=== PATIENT | male | born 1955 | race Caucasian/White ===

== ENCOUNTER 2021-05-02 18:44 | Emergency (ER) | payer MEDICARE, OTHER ==
[~2021-05-02] VITALS: Ht 185.4 cm; Wt 93.4 kg
--- NOTE | 2021-05-02 18:54 | NUR ---
CALLED TO TRIAGE NO ANSWER.
--- NOTE | 2021-05-02 19:11 | NUR ---
called for triage. no answer
--- NOTE | 2021-05-02 20:30 | NUR ---
BIBS FOR C/O GENERALIZED BODY PAIN X 1 DAY. ALERT AND ORIENTED X4 BREATHING EVEN AND UNLABORED. PLACED ON MONITOR AND ALL V/S STABLE.
[2021-05-02] MEDS ORDERED: IV NS 0.9% 1,000 ML BAG IV ONE (21:00)
--- NOTE | 2021-05-02 21:15 | NUR ---
SENIOR CHEMIST AT 'S [facility]. LAC #18G S/L; PATENT AND INTACT.
--- NOTE | 2021-05-02 21:29 | NUR ---
MAKING DEPARTMENT PREPARER AT PT'S BEDSIDE
[2021-05-02 21:31] LABS: BASOPHILS % (AUTO) 0.4 % (0.0-2.0); EOSINOPHILS % (AUTO) 0.3 % (0.0-6.0); HEMATOCRIT 43 % (39-51); HEMOGLOBIN 14.7 g/dL (13.5-17.5); LYMPHOCYTES # (AUTO) 1.3 K/uL (0.8-4.8); LYMPHOCYTES % (AUTO) 21.8 % (20.0-44.0); MEAN CORPUSCULAR HGB CONC 35 g/dl (31.0-36.0); MEAN CORPUSCULAR VOLUME 89 fL (80-96); MONOCYTES # (AUTO) 0.6 K/uL (0.1-1.30); MONOCYTES % (AUTO) 9.6 % (2.0-12.0); NEUTROPHILS % (AUTO) 67.9 % (43.0-81.0); PLATELET COUNT (AUTO) 144 K/uL (150-450); RED BLOOD CELL COUNT(AUTO) 4.83 MIL/uL (4.5-6.0); WHITE BLOOD COUNT (AUTO) 5.9 K/uL (4.3-11.0)
--- NOTE | 2021-05-02 21:48 | NUR ---
POC ACCUCHECK 153
[2021-05-02 21:53] LABS: CALCIUM, SERUM 8.9 mg/dL (8.5-10.1); CARBON DIOXIDE 23 mmol/L (21-32); CHLORIDE 104 mmol/L (98-107); GLUCOSE 172 mg/dL (74-106); POTASSIUM 4.2 mmol/L (3.5-5.1); SODIUM SERUM 139 mmol/L (136-145); UREA NITROGEN, BLOOD 25 mg/dL (7-18)
[2021-05-02] MEDS ORDERED: MORPHINE SULFATE INJ 2 MG/ML DISP.SYRIN ONE (21:53)
[2021-05-02 21:59] LABS: ALANINE AMINOTRANSFERASE 20 U/L (12-78); ALBUMIN 3.2 g/dL (3.4-5.0); ALKALINE PHOSPHATASE 58 U/L (46-116); ASPARTATE AMINOTRANSFERASE 19 U/L (15-37); BILIRUBIN,DIRECT 0.2 mg/dL (0.0-0.2); BILIRUBIN,TOTAL 0.6 mg/dL (0.2-1.0); TOTAL PROTEIN, SERUM 7.1 g/dL (6.4-8.2)
[2021-05-02] MEDS ORDERED: MORPHINE SULFATE INJ 2 MG/ML DISP.SYRIN IV ONE (22:00)
--- NOTE | 2021-05-02 22:04 | NUR ---
PT STILL UNALBE TO GIVE URINE SAMPLE AT THIS TIME
--- NOTE | 2021-05-02 23:10 | NUR ---
URINE COLLECTED AND SENT TO LAB
[2021-05-02 23:31] LABS: BILIRUBIN,URINE NEGATIVE (NEGATIVE); COLOR,URINE DARK YELLOW (YELLOW); LEUKOCYTE ESTERASE ,URINE NEGATIVE (NEGATIVE); NITRITE, URINE NEGATIVE (NEGATIVE); PH,URINE 5.5 (5.0-8.0); PROTEIN,URINE >=300 mg/dl (NEGATIVE); UGLUCOSE NEGATIVE (NEGATIVE); UROBILINOGEN,URINE 0.2 EU/dL (0.2)
--- NOTE | 2021-05-03 00:01 | NUR ---
CALLED THE CONTACT NUMBER IN THE CHART PER PT'S REQUEST FOR LEGAL ACTIVITY ADJUDICATOR. ON HIS WAY
[2021-05-03 00:28] VITALS: BP 127/86
--- NOTE | 2021-05-03 00:28 | NUR ---
Patient discharged to independant living in stable condition. Written and verbal after care instructions given. Patient verbalizes understanding of instruction. IV removed. Catheter intact and site benign. Pressure and 4x4 applied to site. No bleeding noted. Independant account financial manager Rohit picked up patient.
--- NOTE | 2021-05-03 00:28 | NUR ---
Patient discharged to home in stable condition. Written and verbal after care instructions given. Patient verbalizes understanding of instruction.
[2021-05-03 07:28] LABS: BACTERIA,URINE Rare /HPF (None Seen); SQUAMOUS EPITHELIAL CELL,UR Rare /HPF (None Seen); WBC,URINE 0-2 /HPF (0-3)
== END 2021-05-03 00:29 | disposition home or self-care (01) ==
LOC: ER 18:47
DX: G89.29 Other chronic pain (principal); R53.1 Weakness; R53.83 Other fatigue; I10 Essential (primary) hypertension; E11.9 Type 2 diabetes mellitus without complications; G47.00 Insomnia, unspecified; F17.200 Nicotine dependence, unspecified, uncomplicated; Z59.00 Homelessness unspecified; Z98.890 Other specified postprocedural states
CPT/HCPCS: 36415; 71045; 80048; 80076; 81001; 83605; 84484; 85025; 87040 ×2; 93005 ×2; 96361; 96374; 99285; J2270; J7030

== ENCOUNTER 2021-12-01 11:05 | Inpatient (IN) | payer MEDICARE, OTHER ==
[~2021-12-01] VITALS: Ht 180.3 cm; Wt 89.4 kg
--- NOTE | 2021-12-01 11:15 | NUR ---
BIB FAMILY FOR WEAKNESS X2 DAY PT HAD A GLF YESTERDAY, HYPOXIC, AND FEBRILE. PT SATTING IN 80% ON 6L NC. PT STATED HE DOES NOT USE OXYGEN AT HOME AND DID NOT NEED ASSISTANCE 2 DAYS PRIOR. STATED THE ONSET WAS SUDDEN. PT IS A&OX4. DR FLORES AT BEDSIDE. AWAITING MD ORDERS.
--- NOTE | 2021-12-01 11:49 | NUR ---
BIPAP SETTINGS HI RATE; 45 LO RATE: 10 HI VT: 1400 LO VT: 200 HIP: 20 LIP: 5 LO VE: 3.0 LIP T: 25
--- NOTE | 2021-12-01 11:55 | NUR ---
RT NOTE RT CALLED TO BEDSIDE TO PLACE PATIENT ON BIPAP WITH SETTINGS PER MD ORDER. BIPAP SETTINGS: 15/, BUR 18, 100%. ABG TO FOLLOW ONE HOUR POST INITIAL BIPAP SET UP. RN NOTIFIED AND AWARE. SpO2 93%. NO SOB NOTED AT THIS TIME. Addendum: 12/01/21 at 1532 by IRIS LU RT Amended: Links added.
[2021-12-01] MEDS ORDERED: VANCOMYCIN 1 GM in IV D5W 250 ML IV ONE (12:00)
[2021-12-01] MEDS ORDERED: CEFEPIME 1 GM in IV D5W 50 ML IV ONE (12:00)
--- NOTE | 2021-12-01 12:09 | NUR ---
COVID TEST COLELCTED AND SENT
[2021-12-01 12:19] LABS: BASOPHILS % (AUTO) 0.1 % (0.0-2.0); HEMATOCRIT 44 % (39-51); LYMPHOCYTES # (AUTO) 1.2 K/uL (0.8-4.8); LYMPHOCYTES % (AUTO) 5.7 % (20.0-44.0); MEAN CORPUSCULAR HGB CONC 34 g/dl (31.0-36.0); MEAN CORPUSCULAR VOLUME 89 fL (80-96); MONOCYTES # (AUTO) 0.9 K/uL (0.1-1.30); NEUTROPHILS # (AUTO) 19.6 K/uL (1.8-8.9); NEUTROPHILS % (AUTO) 90.2 % (43.0-81.0); PLATELET COUNT (AUTO) 202 K/uL (150-450); RED BLOOD CELL COUNT(AUTO) 4.94 MIL/uL (4.5-6.0); WHITE BLOOD COUNT (AUTO) 21.7 K/uL (4.3-11.0)
--- NOTE | 2021-12-01 12:52 | NUR ---
LAB CALLED ELI FLORES AWARE.
[2021-12-01 12:53] LABS: CALCIUM, SERUM 8.5 mg/dL (8.5-10.1); CARBON DIOXIDE 18 mmol/L (21-32); CHLORIDE 98 mmol/L (98-107); CREATININE 1.1 mg/dL (0.6-1.3); GLUCOSE 240 mg/dL (74-106); POTASSIUM 3.6 mmol/L (3.5-5.1); SODIUM SERUM 131 mmol/L (136-145); UREA NITROGEN, BLOOD 25 mg/dL (7-18)
--- NOTE | 2021-12-01 13:07 | NUR ---
MOVE SHEET SUBMITTED.
[2021-12-01 13:12] LABS: ALANINE AMINOTRANSFERASE 36 U/L (12-78); ALBUMIN 3.1 g/dL (3.4-5.0); ALKALINE PHOSPHATASE 71 U/L (46-116); ASPARTATE AMINOTRANSFERASE 35 U/L (15-37); BILIRUBIN,DIRECT 0.6 mg/dL (0.0-0.2); BILIRUBIN,TOTAL 1.5 mg/dL (0.2-1.0); TOTAL PROTEIN, SERUM 7.5 g/dL (6.4-8.2)
[2021-12-01] MEDS ORDERED: ZOLP10TA2 PO (13:18)
[2021-12-01] MEDS ORDERED: METF-442 PO (13:18)
[2021-12-01] MEDS ORDERED: HYDR-3980 PO (13:18)
[2021-12-01] MEDS ORDERED: AMLO-212 PO (13:18)
[2021-12-01] MEDS ORDERED: LURA60TA3 PO (13:18)
[2021-12-01] MEDS ORDERED: MECL-182 PO (13:18)
[2021-12-01] MEDS ORDERED: INSU100I26 SQ (13:18)
[2021-12-01] MEDS ORDERED: LORA-259 PO (13:18)
[2021-12-01] MEDS ORDERED: ENOXAPARIN SODIUM 60 MG/0.6 ML DISP.SYRIN SQ ONE ×2 (13:30→16:38)
--- NOTE | 2021-12-01 13:30 | NUR ---
RT NOTE POST ABG RESULTS SHOWN TO DR. FLORES. DECREASED FIO2 TO 70%. RN NOTIFIED AND AWARE. Addendum: 12/01/21 at 1532 by IRIS LU RT Amended: Links added.
[2021-12-01] MEDS ORDERED: IV D5/ 0.9% NACL 1,000 ML IV PRN (14:00)
[2021-12-01] MEDS ORDERED: MAG HYDROX/AL HYDROX/SIMETH 30 ML UDC PO PRN (14:30)
--- NOTE | 2021-12-01 14:44 | NUR ---
ADDITIONAL IV ESTBLISHED L AC 20G.
--- NOTE | 2021-12-01 16:32 | NUR ---
GOT BED 259
[2021-12-01] MEDS ORDERED: Z GUARD REMEDY 4 OZ OINT TP PRN (17:00)
--- NOTE | 2021-12-01 17:00 | NUR ---
16FR COUDE SHABAZZ IN PLACE 200CC URINE OUTPUT. URINE COLLECTED AND SENT.
[2021-12-01 17:03] LABS: ABG BASE EXCESS -5.6 mmol/L; ABG PCO2 26.7 mmHg (35.0-45.0); ABG PH 7.424 (7.350-7.450); ABG PO2 169.5 mmHg (75.0-100.0); COHb 1.3 % (0.5-1.5); MetHb 0.4 % (0.0-1.5); O2Hb 97.2 % (94.0-97.0); SITE, ABG Right Radial
--- NOTE | 2021-12-01 17:08 | NUR ---
REPORT GIVEN TO LUIS MIGUEL FOR JESSICA
[2021-12-01 17:22] LABS: BILIRUBIN,URINE MODERATE (NEGATIVE); COLOR,URINE YELLOW (YELLOW); LEUKOCYTE ESTERASE ,URINE NEGATIVE (NEGATIVE); NITRITE, URINE NEGATIVE (NEGATIVE); PROTEIN,URINE >=300 mg/dl (NEGATIVE); UGLUCOSE NEGATIVE (NEGATIVE)
[2021-12-01] MEDS ORDERED: DEXTROSE 50%-WATER 50 ML DISP.SYRIN IV PRN (17:30)
[2021-12-01 17:54] LABS: BACTERIA,URINE Few /HPF (None Seen); RBC,URINE 81-100 /HPF (0-2)
[2021-12-01 17:55] LABS: SQUAMOUS EPITHELIAL CELL,UR Rare /HPF (None Seen)
[2021-12-01] MEDS ORDERED: PIPERACILLIN /TAZOBACTAM 3.375 G in IV D5W 50 ML IV SCH (18:00)
[2021-12-01] MEDS: MECLIZINE HCL 12.5 MG TABLET PO SCH (18:17)
[2021-12-01] MEDS: IV NS 0.9% 1,000 ML IV PRN (18:18)
[2021-12-01] MEDS: BLOOD SUGAR DIAGNOSTIC 1 EACH STRIP VI SCH ×2 (18:25→21:03)
[2021-12-01] MEDS: HYDROCODONE/APAP 10/325MG TABLET PO PRN (18:40)
[2021-12-01] MEDS: CEFTRIAXONE 1 G in IV D5W 50 ML IV SCH (18:51)
[2021-12-01] MEDS ORDERED: IV NS 0.9% 250 ML IV PRN (19:00)
--- NOTE | 2021-12-01 19:12 | NUR ---
ICU/RN PT RECEIVED IN ROOM 259. PT ON BIPAP VITAL SIGNS STABLE AT THIS TIME, SAT 95% ON BEDSIDE MONITOR WITH BIPAP AT 70% FIO2. SHABAZZ CATH IN PLACE. RIGHT AC AND LEFT AC PIV IN PLACE. NS AT 100CC/HR INITIATED. REPORT GIVEN TO MALIA GREENE FOR JESSICA.
--- NOTE | 2021-12-01 19:30 | NUR ---
ICU/RN NOTE RECEIVED REPORT PATIET IS A&OX4 ALERT AND AWAKE LAYING ON THE BED ALL VSS.NO SIGNS OF DISTRESS, SR. PATIENT ON BIPAP SATTING AT 95%. DIET NPO. IV RAC #18 G, LAC #20 G PATENT INTACT AND FLUSHED. PATIENT VOIDING VIA SHABAZZ CATHETER. ALL SAFETY FALL PRECAUTIONS IN PLACE BED IN LOWEST POSITION, BED LOCK ON, SIDE RAILS UP, BED LOCK ON, CALL LIGHT WITHIN REACH, NURSE SITTING IN FRONT OF THE ROOM. WILL CONTINUE TO MONITOR.
--- NOTE | 2021-12-01 19:50 | NUR ---
ICU/RN NOTE I CALLED PHARMACY FOR MISSING ANTIBIOTICS THAT WERE DUE AT 1900. THE SAID THEY WOULD DELIVER THEM.
--- NOTE | 2021-12-01 19:58 | NUR ---
1CU/RN DOCTOR IBETH WAS CONTACTED TO VERFIY THE FLUID THE PATIENT SHOULD BE RUNNING HE HAS AN ORDER FOR NS 0.9% AND D5NS.
[2021-12-01 20:00] VITALS: BP 125/87
[2021-12-01] MEDS ORDERED: VANCOMYCIN 1.25 GM in IV D5W 250 ML IV SCH (20:00)
[2021-12-01] MEDS: CIPROFLOXACIN HCL 0.3% 5 ML BOTTLE EACHEYE SCH ×2 (20:00→21:10)
[2021-12-01] MEDS: LEVOFLOXACIN 750 MG /D5W 150ML 150 ML IV SCH (20:07)
--- NOTE | 2021-12-01 20:07 | NUR ---
ICU/RN NOTE EYE DROPS WERE NOT ADMINISTERED BECAUSE THE PHARMACY DID NOT DELIVER THE. I CALLED THE PHARMACY THEY SAID THEY WOULD DELIVER THEM.
--- NOTE | 2021-12-01 20:43 | NUR ---
PT IS AWAKE ON BIPAP. PT TOLERATING SETTINGS. CONTINUE TO MONITOR. Addendum: 12/01/21 at 2043 by PADDY BECKFORD RT Amended: Links added.
[2021-12-01 21:00] VITALS: BP 122/76
[2021-12-01] MEDS: INSULIN REGULAR, HUMAN 100 UNIT/ML 3 ML VIAL SQ PRN (21:06)
--- NOTE | 2021-12-01 21:10 | NUR ---
ICU/RN NOTE PATIENT'S EYE DROPS WERE ADMINISTERED SOON THEY WERE DELIVERED BY THE PHARMACY. THE PATIENTS EYES WERE CLEANED WITH A CLEAN WASH CLOTH PRIOR TO ADMINISTERATION OF THE EYE DROPS.
[2021-12-01 22:00] VITALS: BP 118/78
[2021-12-01] MEDS ORDERED: MAGNESIUM HYDROXIDE 30 ML UDC PO PRN (22:00)
[2021-12-01] MEDS: ONDANSETRON HCL/PF 4 MG/2 ML VIAL IVP PRN (22:58)
[2021-12-01] MEDS: ACETAMINOPHEN 325 MG TABLET PO PRN (22:59)
[2021-12-01] MEDS: ZOLPIDEM TARTRATE 5 MG TABLET PO PRN (22:59)
[2021-12-01 23:00] VITALS: BP 106/75
[2021-12-02] VITALS (24 sets, daily range): BP systolic 101–159; BP diastolic 63–89
[2021-12-02] MEDS: IV NS 0.9% 1,000 ML IV PRN (03:53)
[2021-12-02] MEDS: HYDROCODONE/APAP 10/325MG TABLET PO PRN ×3 (05:07→19:27)
[2021-12-02] MEDS: ONDANSETRON HCL/PF 4 MG/2 ML VIAL IVP PRN ×2 (05:07→22:59)
--- NOTE | 2021-12-02 05:10 | NUR ---
ABG DONE RN NOTIFIED WITH THE RESULT.
[2021-12-02 05:50] LABS: ABG BASE EXCESS -2.3 mmol/L; ABG OXYGEN SATURATION 93.2 % (92.0-98.5); ABG PCO2 33.2 mmHg (35.0-45.0); ABG PH 7.425 (7.350-7.450); ABG PO2 67.1 mmHg (75.0-100.0); AaDO2 252.1 mmHg; O2Hb 92.3 % (94.0-97.0); SITE, ABG Right Radial
--- NOTE | 2021-12-02 07:20 | NUR ---
ICU/RN REPORRT GIVEN TO DAY RN. PATIENT STABLE NO SIGNS OF DISTRESS. ALL QUESTIONS ANSWERED.
--- NOTE | 2021-12-02 07:28 | NUR ---
RN OPENING NOTE REPORT RECIEVED FROM NIGHTSHIFT RN. ON BIPAP TOLERATING SETTINGS WELL. ALERT AND ORIENTED TIMES 4. ON NAVAL AIRCREWMAN OPERATOR READING SINUS RHYTHM. SKIN INTACT. SHABAZZ CATHETER DRAINING BETH COLORED URINE. IV ACCESS ON LEFT AND RIGHT ANTECUBITALS PATENT AND FLUSHING NO RESISTANCE. SAFETY MEASURES IMPLEMENTED, BED IN LOWEST LOCKED POSITION, SIDE RAILS UP TIMES 4 CALL LIGHT WITHIN REACH. WILL CONTINUE PLAN OF CARE AND ANTICIPATE NEEDS.
[2021-12-02] MEDS: BLOOD SUGAR DIAGNOSTIC 1 EACH STRIP VI SCH ×4 (07:44→22:05)
[2021-12-02 08:36] LABS: BASOPHILS % (AUTO) 0.1 % (0.0-2.0); EOSINOPHILS % (AUTO) 0.4 % (0.0-6.0); HEMATOCRIT 41 % (39-51); LYMPHOCYTES # (AUTO) 2.2 K/uL (0.8-4.8); LYMPHOCYTES % (AUTO) 15.1 % (20.0-44.0); MEAN CORPUSCULAR HGB CONC 35 g/dl (31.0-36.0); MEAN CORPUSCULAR VOLUME 90 fL (80-96); MONOCYTES # (AUTO) 0.7 K/uL (0.1-1.30); MONOCYTES % (AUTO) 4.9 % (2.0-12.0); NEUTROPHILS # (AUTO) 11.4 K/uL (1.8-8.9); NEUTROPHILS % (AUTO) 79.5 % (43.0-81.0); PLATELET COUNT (AUTO) 155 K/uL (150-450); RED BLOOD CELL COUNT(AUTO) 4.51 MIL/uL (4.5-6.0); WHITE BLOOD COUNT (AUTO) 14.4 K/uL (4.3-11.0)
--- NOTE | 2021-12-02 08:40 | NUR ---
pt placed off bipap onto simple mask 6lpm. zero distress noted at this time.
[2021-12-02] MEDS: AMLODIPINE BESYLATE 5 MG TABLET PO SCH (09:00)
[2021-12-02] MEDS: MECLIZINE HCL 12.5 MG TABLET PO SCH ×2 (09:00→17:22)
[2021-12-02] MEDS: ENOXAPARIN SODIUM 40 MG/0.4 ML DISP.SYRIN SQ SCH (09:01)
[2021-12-02] MEDS: CIPROFLOXACIN HCL 0.3% 5 ML BOTTLE EACHEYE SCH ×2 (09:04→17:21)
[2021-12-02 09:43] LABS: CALCIUM, SERUM 8.2 mg/dL (8.5-10.1); CREATININE 0.9 mg/dL (0.6-1.3); MAGNESIUM 1.4 mg/dL (1.8-2.4); PHOSPHORUS 2.7 mg/dL (2.5-4.9); POTASSIUM 3.7 mmol/L (3.5-5.1)
[2021-12-02] MEDS: INSULIN REGULAR, HUMAN 100 UNIT/ML 3 ML VIAL SQ PRN (12:10)
[2021-12-02] MEDS: ACETAMINOPHEN 325 MG TABLET PO PRN ×2 (13:19→23:00)
--- NOTE | 2021-12-02 13:34 | NUR ---
PATIENT REPORTS PAIN 8/10 ONE HOUR AFTER PRN NORCO. PROVIDED ICE PACKS FOR NONPHARMACOLOGICAL PAIN RELIEF.
[2021-12-02] MEDS: MAGNESIUM OXIDE 400 MG TABLET PO SCH ×2 (14:28→15:14)
[2021-12-02 15:09] LABS: ABG BASE EXCESS -1.5 mmol/L; ABG OXYGEN SATURATION 98.4 % (92.0-98.5); ABG PCO2 28.5 mmHg (35.0-45.0); ABG PO2 127.6 mmHg (75.0-100.0); AaDO2 124.8 mmHg; MetHb 0.1 % (0.0-1.5); O2Hb 97.3 % (94.0-97.0); SITE, ABG Right Radial
[2021-12-02] MEDS: CEFTRIAXONE 1 G in IV D5W 50 ML IV SCH (17:22)
[2021-12-02] MEDS: LATUDA 60 MG PO SCH (17:22)
--- NOTE | 2021-12-02 19:00 | NUR ---
RN CLOSING NOTE HAND OFF REPORT GIVEN TO NIGHTSHIFT RN FOR CONTINUATION OF CARE. VITAL SIGNS STABLE.
[2021-12-02] MEDS: LEVOFLOXACIN 750 MG /D5W 150ML 150 ML IV SCH (19:27)
--- NOTE | 2021-12-02 19:30 | NUR ---
ICU/RN NOTE RECEIVED REPORT. KATIA IS A&OX4 ALERT AND AWAKE LAYING ON THE BED ALL VSS.NO SIGNS OF DISTRESS, SR. PATIENT ON ROOM AIR SATTING AT 93%. DIET MECHANICAL SOFT. IV RAC #18 G, LAC #20 G PATENT INTACT AND FLUSHED. PATIENT VOIDING VIA SHABAZZ CATHETER. ALL SAFETY FALL PRECAUTIONS IN PLACE BED IN LOWEST POSITION, BED LOCK ON, SIDE RAILS UP, BED LOCK ON, CALL LIGHT WITHIN REACH, NURSE SITTING IN FRONT OF THE ROOM. WILL CONTINUE TO MONITOR.
[2021-12-02] MEDS: *INSULIN REGULAR(HUMULIN R)HUM 100 UNIT/ML VIAL SQ PRN (21:51)
[2021-12-02] MEDS: ZOLPIDEM TARTRATE 5 MG TABLET PO PRN (23:00)
[2021-12-03] VITALS: BP 99/56
--- NOTE | 2021-12-03 01:00 | NUR ---
ICU/DUPLICATING MACHINE SERVICER NOTE PATIENT TRANSFERED TO TELE ROOM 104. ALL MEDICATION AND BELONGING WITH THE CHART WERE DELIVERED WITH THE PATIENT. PATIENT WAS STABLE UPON ARRIVAL TO TELE. ALL QUESTIONS WERE ANSWERED.
--- NOTE | 2021-12-03 01:05 | NUR ---
RN NOTE Received patient from ICU via medical bed accompanied by Sydni GREENE and supervisor propellant charge loading Nubia, AO x 4, in no acute distress, saturation at 93% on 6L via NC, SR on the monitor HR is 98. IV line at RAC 18g, and LAC 20g both patent and flushing well, saline locked. Lynne catheter draining to a clear, yellow output. Skin check done, redness noted at groin/perineal area. Safety measures implemented, bed is locked and at lowest position, bed alarm on, side rails up x 2, will continue to monitor and reassess.
[2021-12-03] MEDS: HYDROCODONE/APAP 10/325MG TABLET PO PRN ×3 (02:31→21:41)
[2021-12-03 04:00] VITALS: BP 92/62
--- NOTE | 2021-12-03 06:58 | NUR ---
RN NOTE CRITICAL LAB: WBC 30.5. DR CRISTINA NOTIFIED, WITH NO NEW ORDERS.
--- NOTE | 2021-12-03 07:25 | NUR ---
SENIOR DEVELOPER OPENING NOTES: RECEIVED PATIENT IN BED, AWAKE, ALERT, ORIENTED X 3. ON OXYGEN @ 6L/MIN VIA N/C WITH OXYGEN SATURATION OF 94%. NO SOB NOTED, BREATHING EVEN AND UNLABORED. ON SR ON TELE MONITOR WITH HR OF 89. SALINE LOCKS ON RIGHT AC AND LEFT AC, BOTH FLUSHES WELL, NO S/S INFILTRATION NOTED. SHABAZZ CATHETER INTACT, DRAINING WITH YELLOW COLORED URINE, NO SEDIMENTATION NOTED. BED LOCKED AND IN LOWEST POSITION, CALL LIGHT WITHIN REACH. ALL SAFETY MEASURES IN PLACE. WILL CONTINUE TO MONITOR PATIENT THROUGHOUT SHIFT.
[2021-12-03] MEDS: BLOOD SUGAR DIAGNOSTIC 1 EACH STRIP VI SCH ×4 (07:43→21:46)
[2021-12-03] MEDS: INSULIN REGULAR, HUMAN 100 UNIT/ML 3 ML VIAL SQ PRN ×2 (07:45→13:12)
[2021-12-03 08:00] VITALS: BP 125/73
[2021-12-03] MEDS: ENOXAPARIN SODIUM 40 MG/0.4 ML DISP.SYRIN SQ SCH (08:30)
[2021-12-03] MEDS: MECLIZINE HCL 12.5 MG TABLET PO SCH ×2 (08:31→17:05)
[2021-12-03] MEDS: CIPROFLOXACIN HCL 0.3% 5 ML BOTTLE EACHEYE SCH ×2 (08:31→17:04)
[2021-12-03] MEDS: AMLODIPINE BESYLATE 5 MG TABLET PO SCH (08:32)
--- NOTE | 2021-12-03 10:20 | NUR ---
RECEIVED A VERBAL ORDER FROM DR. MENDENHALL TO D/C PATIENT'S SHABAZZ CATHETER. ORDER NOTED AND CARRIED OUT. PLACED CONDOM CATH TO ASSESS AND MEASURE URINE OUTPUT
--- NOTE | 2021-12-03 10:33 | NUR ---
WITNESSED CONSENT FOR CT ANG[facility] HEART WITH 3D IMAGE. CALLED RADIOLOGY DEPT TO FIND OUT WHAT TIME WILL THE PATIENT BE PICKED UP FOR THE PROCEDURE BUT NO ANSWER. WILL TRY AGAIN LATER.
--- NOTE | 2021-12-03 10:48 | NUR ---
SPOKE WITH DENA AT RADIOLOGY DEPT EXT [id number] AND INFORMED OF CONSENT SIGNED BY THE PATIENT AND SAID THAT THEY WILL COME AND GRIPPER INSTALLER THE PATIENT SOON.
[2021-12-03] MEDS ORDERED: IOHEXOL-350 100 ML VIAL IV ONE (10:52)
[2021-12-03] MEDS ORDERED: IV NS 0.9% 250 ML IV ONE (10:52)
--- NOTE | 2021-12-03 10:55 | NUR ---
PATIENT LEFT FOR HIS CT ANG[facility]
[2021-12-03] MEDS: METOPROLOL TARTRATE INJ 5 MG/5 ML AMPUL IVP PRN ×8 (11:15→11:50)
[2021-12-03] MEDS ORDERED: METOPROLOL TARTRATE INJ 5 MG/5 ML AMPUL ONE ×2 (11:17→11:38)
[2021-12-03] MEDS ORDERED: NITROGLYCERIN 0.4 MG/TAB BOTTLE SL PRN (11:30)
--- NOTE | 2021-12-03 11:55 | NUR ---
PATIENT CAME BACK FROM THE RADIOLOGY DEPT. PATIENT WAS PLACED ON TELEMETRY UNIT. RECEIVED INSTRUCTIONS FROM [place] - RADIOLOGY DEPT FOR THE PATIENT TO NOT TAKE METFORMIN FOR 48 HOURS AFTER ADMINISTRATION OF IV CONTRAST UNTIL 12/05/21 12 PM.
[2021-12-03 12:00] VITALS: BP 104/65
[2021-12-03] MEDS: Magnesium 1GM/D5W 100ML PREMIX 100 ML IV SCH ×2 (12:20→13:41)
[2021-12-03 16:00] VITALS: BP 122/79
[2021-12-03] MEDS: LATUDA 60 MG PO SCH (17:05)
[2021-12-03] MEDS: CEFTRIAXONE 1 G in IV D5W 50 ML IV SCH (17:06)
[2021-12-03] MEDS: LEVOFLOXACIN 750 MG /D5W 150ML 150 ML IV SCH (18:35)
--- NOTE | 2021-12-03 19:00 | NUR ---
TURNER IN CLOSING NOTES: PATIENT IN BED, ASLEEP BUT EASILY AROUSES TO VOICE AND TACTILE STIMULI, NO SOB NOTED. ON OXYGEN @ 6L/MIN VIA N/C WITH OXYGEN SATURATION OF 95%. ON SR ON TELE MONITOR WITH HR OF 82. SALINE LOCKS INTACT ON RAC AND LAC, INTACT, FLUSHING WELL. BED LOCKED AND IN LOWEST POSITION, BED ALARM ON FOR SAFETY. WILL ENDORSE TO NEXT SHIFT NURSE FOR CONTINUITY OF CARE.
--- NOTE | 2021-12-03 19:30 | NUR ---
RN note Received patient in bed, awake, alert, and verbally responsive. breathing even and unlabored. patient on 6L/min via nasal cannula. tolerating well. will titrate down as tolerable. Denies sob. no cough. Skin warm and dry to touch. PIV intact. no IVF infusing. condom catheter draining joe colored urine. no bleeding at this time. no s/s of hypoglycemia. Patient assisted with turning and repositioning. Bed low, in locked position. Reminded to use call light when assistance is needed. will continue to monitor.
[2021-12-03 20:00] VITALS: BP 131/73
[2021-12-03] MEDS: *INSULIN REGULAR(HUMULIN R)HUM 100 UNIT/ML VIAL SQ PRN (21:49)
[2021-12-04] VITALS: BP 122/65
[2021-12-04 04:00] VITALS: BP 118/66
[2021-12-04] MEDS: HYDROCODONE/APAP 10/325MG TABLET PO PRN ×2 (05:33→14:26)
--- NOTE | 2021-12-04 06:48 | NUR ---
RN Note no significant changes. patient with 2 episode of generalized back pain. Turning and repositioning did not alleviate pain. patient rates pain as 8/10. patient requested for pain medication. Patient was administered two doses of PRN norco 10-325 per md order. will continue to monitor. Call light within reach.
[2021-12-04 08:39] VITALS: BP 115/65
[2021-12-04] MEDS: ACETAMINOPHEN 325 MG TABLET PO PRN (09:05)
[2021-12-04] MEDS: ENOXAPARIN SODIUM 40 MG/0.4 ML DISP.SYRIN SQ SCH (09:05)
[2021-12-04] MEDS: MECLIZINE HCL 12.5 MG TABLET PO SCH ×2 (09:06→17:07)
[2021-12-04] MEDS: AMLODIPINE BESYLATE 5 MG TABLET PO SCH (09:06)
[2021-12-04] MEDS: BLOOD SUGAR DIAGNOSTIC 1 EACH STRIP VI SCH ×4 (09:09→21:38)
[2021-12-04] MEDS: CIPROFLOXACIN HCL 0.3% 5 ML BOTTLE EACHEYE SCH ×2 (09:09→17:08)
[2021-12-04] MEDS: INSULIN REGULAR, HUMAN 100 UNIT/ML 3 ML VIAL SQ PRN ×2 (09:18→17:38)
[2021-12-04 10:02] LABS: CHOLESTEROL 105 mg/dL (<200); HDL CHOLESTEROL 27 mg/dL (40-60); LDL 59 mg/dL (0-99); TRIGLYCERIDES 134 mg/dL (30-150)
[2021-12-04] MEDS: FUROSEMIDE 40 MG/4 ML VIAL IV SCH ×2 (11:23→13:20)
[2021-12-04] MEDS: CARVEDILOL 6.25 MG TABLET PO SCH ×2 (11:24→21:31)
[2021-12-04] MEDS: ASPIRIN 81 MG TAB.CHEW PO SCH (11:25)
[2021-12-04] MEDS: ATORVASTATIN 10 MG TABLET PO SCH (11:25)
[2021-12-04] MEDS: POTASSIUM CHLORIDE 20 MEQ TAB.PRT.SR PO SCH ×2 (11:25→11:30)
[2021-12-04] MEDS: *INSULIN REGULAR(HUMULIN R)HUM 100 UNIT/ML VIAL SQ PRN ×2 (11:48→21:40)
[2021-12-04 12:00] VITALS: BP 128/80
[2021-12-04] MEDS ORDERED: MAGNESIUM OXIDE 400 MG TABLET PO ONE (12:00)
[2021-12-04 16:00] VITALS: BP 146/83
[2021-12-04] MEDS: LATUDA 60 MG PO SCH (17:07)
[2021-12-04] MEDS: CEFTRIAXONE 1 G in IV D5W 50 ML IV SCH (17:08)
[2021-12-04] MEDS: LEVOFLOXACIN 750 MG /D5W 150ML 150 ML IV SCH (18:35)
--- NOTE | 2021-12-04 19:15 | NUR ---
RN NOTES RECEIVED PT FOR CONTINUITY OF CARE. PATIENT A/OX3-4 IN NO S/SX OF ACUTE DISTRESS AT THIS TIME; CURRENTLY ON 3L OF 02 VIA NC; WITH 02 SAT 95% AT THIS TIME.WITH IV ACCESS PATENT, INTACT AND FLUSHING WELL.WILL ENSURE SAFETY MEASURES WITHIN THE SHIFT. PATIENT BED ALARM IS ON. HEAD OF BED ELEVATED. BED IS LOCKED, IN LOWEST POSITION AND SIDE RAILS UP. CALL LIGHT WITHIN REACH OF THE PATIENT. APPLICABLE ISOLATION PRECAUTIONS IN PLACE. WILL CONTINUE TO MONITOR AND REASSESS FOR ANY CHANGES AND WILL CARRY OUT ANY ONGOING AND ACTIVE MD ORDER.
[2021-12-04 20:00] VITALS: BP 145/88
[2021-12-05] VITALS: BP 125/88
[2021-12-05] MEDS: HYDROCODONE/APAP 10/325MG TABLET PO PRN ×4 (01:31→23:13)
[2021-12-05 04:00] VITALS: BP 118/80
--- NOTE | 2021-12-05 06:42 | NUR ---
RN CLOSING NOTE: PATIENT REMAINS IN ROOM IN NO SIGNS OF RESPIRATORY DISTRESS, PATIENT STILL ON 3L OF 02 VIA NC;TOLERATING WELL SATURATING @ >95% SP02. SAFETY MEASURES IMPLEMENTED, BED IN LOWEST POSITION, LOCKED, SIDE RAILS UP, CALL LIGHT WITHIN REACH. ALL NEEDS AND ORDERS ADDRESSED DURING THE SHIFT. IV ACCESS MAINTAINED INTACT, SECURED AND FLUSHING WELL. ALL DUE MEDS GIVEN ORDERED & SCHEDULED ; PATIENT TOLERATED WELL. PATIENT KEPT CLEAN AND COMFORTABLE WITHIN THE SHIFT. PATIENT ENDORSED TO INCOMING SHIFT RN WITH STABLE VITAL SIGN AND FOR CONTINUITY OF CARE.
[2021-12-05 07:01] LABS: BASOPHILS # (AUTO) 0.1 K/uL (0.0-0.2); BASOPHILS % (AUTO) 1.1 % (0.0-2.0); EOSINOPHILS % (AUTO) 2.5 % (0.0-6.0); HEMATOCRIT 43 % (39-51); HEMOGLOBIN 14.8 g/dL (13.5-17.5); LYMPHOCYTES # (AUTO) 3.3 K/uL (0.8-4.8); LYMPHOCYTES % (AUTO) 30.4 % (20.0-44.0); MEAN CORPUSCULAR HGB CONC 35 g/dl (31.0-36.0); MEAN CORPUSCULAR VOLUME 89 fL (80-96); MONOCYTES # (AUTO) 0.8 K/uL (0.1-1.30); MONOCYTES % (AUTO) 7.3 % (2.0-12.0); NEUTROPHILS # (AUTO) 6.4 K/uL (1.8-8.9); NEUTROPHILS % (AUTO) 58.7 % (43.0-81.0); PLATELET COUNT (AUTO) 242 K/uL (150-450); RED BLOOD CELL COUNT(AUTO) 4.76 MIL/uL (4.5-6.0); WHITE BLOOD COUNT (AUTO) 10.8 K/uL (4.3-11.0)
--- NOTE | 2021-12-05 07:10 | NUR ---
RN NOTE RECEIVED PATIENT IN BED RESTING ALERT ORIENTEDX3 VERBALLY RESPONSIVE ON 3L OXYGEN VIA NASAL CANNULA,O2:95% IV SITE ID ON RAC AND LAC INTACT PATENT,CONTIENT BOWEL/BLADDER,SAFETY MEASURE IMPLEMENT BED IN LOW POSITION AND LOCKED,BED ALARM IS GUEST RELATIONS COORDINATOR LIGHT WITHIN REACH CONTINUE TO MONITOR.
[2021-12-05 07:22] LABS: ALBUMIN 2.7 g/dL (3.4-5.0); BILIRUBIN,TOTAL 0.8 mg/dL (0.2-1.0); CALCIUM, SERUM 9.9 mg/dL (8.5-10.1); CREATININE 0.8 mg/dL (0.6-1.3); MAGNESIUM 1.7 mg/dL (1.8-2.4); PHOSPHORUS 4.6 mg/dL (2.5-4.9); POTASSIUM 4.2 mmol/L (3.5-5.1); TOTAL PROTEIN, SERUM 7.9 g/dL (6.4-8.2)
[2021-12-05] MEDS: BLOOD SUGAR DIAGNOSTIC 1 EACH STRIP VI SCH ×4 (07:37→21:38)
[2021-12-05] MEDS: *INSULIN REGULAR(HUMULIN R)HUM 100 UNIT/ML VIAL SQ PRN ×4 (07:41→21:46)
[2021-12-05] MEDS: ENOXAPARIN SODIUM 40 MG/0.4 ML DISP.SYRIN SQ SCH (07:42)
[2021-12-05 08:00] VITALS: BP 127/79
[2021-12-05] MEDS: ATORVASTATIN 10 MG TABLET PO SCH (08:04)
[2021-12-05] MEDS: MECLIZINE HCL 12.5 MG TABLET PO SCH ×2 (08:04→16:04)
[2021-12-05] MEDS: ASPIRIN 81 MG TAB.CHEW PO SCH (08:04)
[2021-12-05] MEDS: CARVEDILOL 6.25 MG TABLET PO SCH (08:05)
[2021-12-05] MEDS: AMLODIPINE BESYLATE 5 MG TABLET PO SCH (08:05)
[2021-12-05] MEDS: CIPROFLOXACIN HCL 0.3% 5 ML BOTTLE EACHEYE SCH ×2 (08:06→16:04)
[2021-12-05] MEDS ORDERED: MAGNESIUM OXIDE 400 MG TABLET PO ONE (11:00)
[2021-12-05 12:00] VITALS: BP 117/70
[2021-12-05 16:00] VITALS: BP 119/75
[2021-12-05] MEDS: LATUDA 60 MG PO SCH (17:25)
[2021-12-05] MEDS: CEFTRIAXONE 1 G in IV D5W 50 ML IV SCH (17:26)
[2021-12-05] MEDS: LEVOFLOXACIN (250MG) 250 MG TABLET PO SCH (17:27)
--- NOTE | 2021-12-05 18:36 | NUR ---
RN NOTE PATIENT REMAINS ALERT ORIENTED X3 ON 3L OXYGEN VIA NASAL CANNULA O2:97% NO SOB NOT ACUTE DISTRESS NOTED,ALL DUE MEDS GIVEN MD ORDERED,CONTIENT BOWEL/BLADDER,KEPT CLEAN AND DRY ALL THE TIME,KEPT COMFORTABLE ALL NEEDS MET ENDORSE NEXT COMING SHIFT FOR CONTINUATION OF CARE.
[2021-12-05 20:00] VITALS: BP 114/70
--- NOTE | 2021-12-05 20:23 | NUR ---
CONTACT LENS LATHE OPERATOR OPENING NOTE PT RECEIVED IN BED, AWAKE, WATCHING TV, A&O X3, CALM, COOPERATIVE. ON 3L NC WITH CURRENT O2SAT OF 96%; NOTED TO HAVE COUGH; NO OTHER S/S OF RESP DISTRESS, DENIES SOB, NON-LABORED AND EQUAL BREATHING. PT ATTACHED TO EXTERNAL MONITOR, NOTED TO BE SINUS ARRHYTHMIA R WAVES ARE INCONSISTENT, HAS HR OF 62. IV ACCESS ON RAC AND LAC 20G INTACT AND PATENT, FLUSHES EASILY WITH NO RESISTANCE; NO MEDS/FLUIDS INFUSING THROUGH IT. BED IN LOWEST POSITION, CALL LIGHT WITHIN REACH, SIDE RAILS UP X2. WILL CONTINUE TO MONITOR THROUGHOUT THE NIGHT.
[2021-12-05] MEDS: ACETAMINOPHEN 325 MG TABLET PO PRN (20:32)
--- NOTE | 2021-12-05 20:33 | NUR ---
RN NOTE PT REPORTS OF A 3/10 BACK PAIN. PT ADMINISTERED TYLENOL 650 MG. WILL MONITOR FOR EFFECTIVENESS.
[2021-12-05] MEDS: CARVEDILOL 12.5 MG TABLET PO SCH (21:15)
--- NOTE | 2021-12-05 22:44 | NUR ---
RN NOTE LAC 20G NOTED TO BE LEAKING. IV DISCONTINUED. RAC 20G REMAINS INTACT AND PATENT
--- NOTE | 2021-12-05 23:14 | NUR ---
RN NOTE PT COMPLAINS OF A 8/10 BACK PAIN. PT ADMINISTERED 1 TAB OF NORCO.
[2021-12-06] VITALS: BP 121/89
[2021-12-06 04:00] VITALS: BP 123/69
--- NOTE | 2021-12-06 06:42 | NUR ---
PRINCIPAL SECURITY ARCHITECT CLOSING NOTE PT REMAINS IN BED, AWAKE, A&O X3, CALM, COOPERATIVE; SLEPT INTERMITTENTLY THROUGHOUT THE NIGHT. CONTINUES TO BE ON 3L NC WITH O2SAT STABLE AT 96%; CONTINUES TO HAVE COUGH; NO OTHER S/S OF RESP DISTRESS, DENIES SOB, NON-LABORED AND EQUAL BREATHING. PT ATTACHED TO EXTERNAL MONITOR AND IS CURRENTLY SINUS BRADYCARDIA WITH HR OF 53. IV ACCESS ON RAC 20G INTACT AND PATENT, FLUSHES EASILY WITH NO RESISTANCE; NO MEDS/FLUIDS INFUSING THROUGH IT. ALL DUE MEDS ADMINISTERED DURING THE NIGHT. BED IN LOWEST POSITION, CALL LIGHT WITHIN REACH, SIDE RAILS UP X2. WILL ENDORSE TO DAYSHIFT NURSE TO CONTINUE CARE.
[2021-12-06 06:45] LABS: CALCIUM, SERUM 9.2 mg/dL (8.5-10.1); CREATININE 0.8 mg/dL (0.6-1.3); MAGNESIUM 1.6 mg/dL (1.8-2.4); POTASSIUM 4.4 mmol/L (3.5-5.1)
[2021-12-06] MEDS: HYDROCODONE/APAP 10/325MG TABLET PO PRN (06:57)
--- NOTE | 2021-12-06 06:57 | NUR ---
RN NOTE PT COMPLAINS OF A 8/10 BACK PAIN. PT ADMINISTERED NORCO 1 TAB.
--- NOTE | 2021-12-06 07:20 | NUR ---
SUPERVISOR FLOOR ASSEMBLY OPENING NOTE RECEIVED PATIENT IN BED, AWAKE.PATIENT IS ALERT AND ORIENTED X3. PATIENT IS ON 3L NASAL CANNULA SATURATING AT 98%. PATIENT HAS NO SIGNS OF DISCOMOFRT. PATIENT HAS TELE MONITOR. PATIENT HAS RIGHT IV. IV INTACT AND PATENT, FLUSHES EASILY. ALL SAFETY MEASURES IN PLACE. CALL LIGHT WITH REACH. BED LOCKED AT LOWEST POSITION. BED ALARM ON.
[2021-12-06] MEDS: BLOOD SUGAR DIAGNOSTIC 1 EACH STRIP VI SCH ×4 (07:38→21:50)
[2021-12-06] MEDS: INSULIN REGULAR, HUMAN 100 UNIT/ML 3 ML VIAL SQ PRN ×3 (07:51→17:23)
[2021-12-06 08:00] VITALS: BP 114/73
[2021-12-06] MEDS: ENOXAPARIN SODIUM 40 MG/0.4 ML DISP.SYRIN SQ SCH (08:58)
[2021-12-06] MEDS: Magnesium 1GM/D5W 100ML PREMIX 100 ML IV SCH ×2 (09:01→11:09)
[2021-12-06] MEDS: CIPROFLOXACIN HCL 0.3% 5 ML BOTTLE EACHEYE SCH (09:02)
[2021-12-06] MEDS: MECLIZINE HCL 12.5 MG TABLET PO SCH ×2 (09:02→17:00)
[2021-12-06] MEDS: ASPIRIN 81 MG TAB.CHEW PO SCH (09:02)
[2021-12-06] MEDS: AMLODIPINE BESYLATE 5 MG TABLET PO SCH (09:03)
[2021-12-06] MEDS: ATORVASTATIN 10 MG TABLET PO SCH (09:03)
[2021-12-06] MEDS: GABAPENTIN 300 MG CAPSULE PO SCH ×3 (09:03→17:10)
[2021-12-06] MEDS: CARVEDILOL 12.5 MG TABLET PO SCH ×2 (09:03→21:43)
[2021-12-06 16:00] VITALS: BP 125/73
[2021-12-06] MEDS: LATUDA 60 MG PO SCH (17:22)
[2021-12-06] MEDS: CEFTRIAXONE 1 G in IV D5W 50 ML IV SCH (18:22)
[2021-12-06] MEDS: LEVOFLOXACIN (250MG) 250 MG TABLET PO SCH (18:22)
[2021-12-06 20:00] VITALS: BP 120/80
--- NOTE | 2021-12-06 20:21 | NUR ---
DIRECTOR PATIENT ACCOUNTING CLOSING NOTE PATIENT ALERT AND ORIENTED X3. ALL NEEDS MET. KEPT CLEAN AND DRY. PATIENT COMPLAINS OF NO PAIN OR DISCOMFORT. IV INTACT AND FLUSHES WELL. ALL SAFETY MEASURES IN PLACE. CALL LIGHT WITH REACH.BED LOCKED AT LOWEST POSITION. BED ALARM ON.
[2021-12-06] MEDS: *INSULIN REGULAR(HUMULIN R)HUM 100 UNIT/ML VIAL SQ PRN (21:52)
--- NOTE | 2021-12-06 23:05 | NUR ---
MS RN OPENING NOTE PT RECEIVED IN BED, ASLEEP BUT EASILY AROUSABLE, A&O X3, CALM, COOPERATIVE. ON 3L NC WITH CURRENT O2SAT OF 98%; NOTED TO HAVE COUGH; NO OTHER S/S OF RESP DISTRESS, DENIES SOB, NON-LABORED AND EQUAL BREATHING. VSS, WILL CONTINUE TO MONITOR NEEDED. IV ACCESS ON RAC 20G INTACT AND PATENT, FLUSHES EASILY WITH NO RESISTANCE; NO MEDS/FLUIDS INFUSING THROUGH IT. BED IN LOWEST POSITION, CALL LIGHT WITHIN REACH, SIDE RAILS UP X2. WILL CONTINUE TO MONITOR THROUGHOUT THE NIGHT.
[2021-12-07 04:00] VITALS: BP 93/47
--- NOTE | 2021-12-07 06:13 | NUR ---
MS RN CLOSING NOTE PT RECEIVED IN BED, ASLEEP BUT EASILY AROUSABLE, A&O X3, CALM, COOPERATIVE. ON 3L NC WITH O2SAT STABLE AT 98% THROUGHOUT THE WHOLE NIGHT; CONTINUES TO HAVE COUGH; NO OTHER S/S OF RESP DISTRESS, DENIES SOB, NON-LABORED AND EQUAL BREATHING. VSS WITH NO SIGNIFICANT CHANGES. IV ACCESS ON RAC 20G INTACT AND PATENT, FLUSHES EASILY WITH NO RESISTANCE; NO MEDS/FLUIDS INFUSING THROUGH IT. ALL DUE MEDS ADMINISTERED DURING THE NIGHT. BED IN LOWEST POSITION, CALL LIGHT WITHIN REACH, SIDE RAILS UP X2. WILL ENDORSE TO DAYSHIFT NURSE TO CONTINUE CARE.
--- NOTE | 2021-12-07 07:27 | NUR ---
RN OPENING NOTE PT RECEIVED IN BED, ASLEEP BUT EASILY AROUSABLE, A&O X3, CALM, COOPERATIVE. ON 3L NC ; NOTED TO HAVE COUGH; NO OTHER S/S OF RESP DISTRESS, DENIES SOB, NON-LABORED AND EQUAL BREATHING. IV ACCESS ON RAC 20G INTACT AND PATENT, FLUSHES EASILY WITH NO RESISTANCE; IT. BED IN LOWEST POSITION, CALL LIGHT WITHIN REACH, SIDE RAILS UP X2.
[2021-12-07 08:00] VITALS: BP 120/70
[2021-12-07] MEDS: MECLIZINE HCL 12.5 MG TABLET PO SCH ×2 (09:16→17:03)
[2021-12-07] MEDS: BLOOD SUGAR DIAGNOSTIC 1 EACH STRIP VI SCH ×4 (09:16→22:22)
[2021-12-07] MEDS: CARVEDILOL 12.5 MG TABLET PO SCH ×2 (09:17→21:02)
[2021-12-07] MEDS: ATORVASTATIN 10 MG TABLET PO SCH (09:17)
[2021-12-07] MEDS: ASPIRIN 81 MG TAB.CHEW PO SCH (09:17)
[2021-12-07] MEDS: AMLODIPINE BESYLATE 5 MG TABLET PO SCH (09:17)
[2021-12-07] MEDS: GABAPENTIN 300 MG CAPSULE PO SCH ×3 (09:17→17:03)
[2021-12-07] MEDS: ENOXAPARIN SODIUM 40 MG/0.4 ML DISP.SYRIN SQ SCH (09:18)
[2021-12-07] MEDS: INSULIN REGULAR, HUMAN 100 UNIT/ML 3 ML VIAL SQ PRN ×3 (09:19→22:28)
[2021-12-07] MEDS ORDERED: ATOR10TA PO (12:18)
[2021-12-07] MEDS ORDERED: CARV12.52 PO (12:18)
[2021-12-07] MEDS ORDERED: ASPI-1169 PO (12:18)
[2021-12-07] MEDS ORDERED: LEVO250T59 PO (12:18)
[2021-12-07] MEDS ORDERED: GABA300C PO (12:18)
[2021-12-07 16:00] VITALS: BP 107/61
[2021-12-07] MEDS: LATUDA 60 MG PO SCH (17:03)
[2021-12-07] MEDS: CEFTRIAXONE 1 G in IV D5W 50 ML IV SCH (17:04)
[2021-12-07] MEDS: *INSULIN REGULAR(HUMULIN R)HUM 100 UNIT/ML VIAL SQ PRN (17:12)
[2021-12-07] MEDS: LEVOFLOXACIN (250MG) 250 MG TABLET PO SCH (17:20)
--- NOTE | 2021-12-07 18:41 | NUR ---
MS RN CLOSING NOTE PT IN BED, ASLEEP BUT EASILY AROUSABLE, A&O X3, CALM, COOPERATIVE. ON 2L NC ; NO OTHER S/S OF RESP DISTRESS, DENIES SOB, NON-LABORED AND EQUAL BREATHING. VSS WITH NO SIGNIFICANT CHANGES. IV ACCESS ON RAC 20G INTACT AND PATENT, FLUSHES EASILY WITH NO RESISTANCE; NO MEDS/FLUIDS INFUSING THROUGH IT. ALL DUE MEDS ADMINISTERED. BED IN LOWEST POSITION, CALL LIGHT WITHIN REACH, SIDE RAILS UP X2. WILL ENDORSE TO NIGHTSHIFT NURSE TO CONTINUE CARE. PATIENT HAVE DISCHARGE ORDERS AWAITING PLACEMENT
[2021-12-07] MEDS: ZOLPIDEM TARTRATE 5 MG TABLET PO PRN (22:17)
[2021-12-08 04:00] VITALS: BP 111/64
--- NOTE | 2021-12-08 05:21 | NUR ---
Closing notes: alert and orientated x4 cooperative uses the bedside commode with one nurse assist unsteady on his legs large brown bm this shift resp even and unlabored room air sats 94 - 98% he wants to have the 02 n/c on even though I did explain to him he didn't neeed the 02 bed alarm in use and he has an understanding of the call light being discharged today
--- NOTE | 2021-12-08 07:11 | NUR ---
RN OPENING NOTE PT RECEIVED IN BED, ASLEEP BUT EASILY AROUSABLE, A&O X3, CALM, COOPERATIVE. ON 2L NC ; NOTED TO HAVE COUGH; NO OTHER S/S OF RESP DISTRESS, DENIES SOB, NON-LABORED AND EQUAL BREATHING. IV ACCESS ON RAC 20G INTACT AND PATENT, FLUSHES EASILY WITH NO RESISTANCE; IT. BED IN LOWEST POSITION, CALL LIGHT WITHIN REACH, SIDE RAILS UP X2.
[2021-12-08 08:00] VITALS: BP 124/73
[2021-12-08] MEDS: BLOOD SUGAR DIAGNOSTIC 1 EACH STRIP VI SCH ×4 (08:32→22:16)
[2021-12-08] MEDS: AMLODIPINE BESYLATE 5 MG TABLET PO SCH (08:33)
[2021-12-08] MEDS: ASPIRIN 81 MG TAB.CHEW PO SCH (08:33)
[2021-12-08] MEDS: GABAPENTIN 300 MG CAPSULE PO SCH ×3 (08:33→17:28)
[2021-12-08] MEDS: MECLIZINE HCL 12.5 MG TABLET PO SCH ×2 (08:33→17:28)
[2021-12-08] MEDS: ATORVASTATIN 10 MG TABLET PO SCH (08:34)
[2021-12-08] MEDS: CARVEDILOL 12.5 MG TABLET PO SCH ×2 (08:34→21:00)
[2021-12-08] MEDS: INSULIN REGULAR, HUMAN 100 UNIT/ML 3 ML VIAL SQ PRN ×3 (08:35→12:52)
[2021-12-08] MEDS: ENOXAPARIN SODIUM 40 MG/0.4 ML DISP.SYRIN SQ SCH (08:36)
--- NOTE | 2021-12-08 12:33 | NUR ---
RN NOTE 1200 BLOOD SUGAR 493 15 UNITS REGULAR INSULIN ADMIN PER JODI GOMEZ DNP ADMIN 10 ADDITIONAL UNITS. ORDERS FOLLOWED
[2021-12-08 16:00] VITALS: BP 134/84
[2021-12-08] MEDS: LATUDA 60 MG PO SCH (17:27)
[2021-12-08] MEDS: LEVOFLOXACIN (250MG) 250 MG TABLET PO SCH (17:28)
[2021-12-08] MEDS: CEFTRIAXONE 1 G in IV D5W 50 ML IV SCH (17:28)
--- NOTE | 2021-12-08 18:15 | NUR ---
RN NOTE REPORT CALLED IN TO [facility] SPOKE WITH CIRILO GREENE. PER NURSE PATIENT WILL NOT BE ACCEPTED PASS 2099. POURED CONCRETE WALL TECHNICIAN MADE AWARE. REPORT CALLED IN, HOME MEDICATIONS PICKED UP AND PLACED IN PATIENTS CHART INCASE PATIENT WERE TO BE D/C TONIGHT. MEDICATION IS TO BE RETURNED TO PHARMACY TOMORROW MORNING. Addendum: 12/08/21 at 1823 by FRANCY CRAMER RN POURED CONCRETE WALL TECHNICIAN MADE AWARE
--- NOTE | 2021-12-08 18:37 | NUR ---
RN CLOSING NOTE PT IN BED, ASLEEP BUT EASILY AROUSABLE, CALM, COOPERATIVE. NO OTHER S/S OF RESP DISTRESS, DENIES SOB, NON-LABORED AND EQUAL BREATHING. VSS WITH NO SIGNIFICANT CHANGES. IV ACCESS ON RAC 20G INTACT AND PATENT, FLUSHES EASILY WITH NO RESISTANCE. BED IN LOWEST POSITION, CALL LIGHT WITHIN REACH, SIDE RAILS UP X2. WILL ENDORSE TO NIGHTSHIFT NURSE TO CONTINUE CARE. PATIENT DISCHARGE BILLING DEPARTMENT SUPERVISOR TIME PENDING
--- NOTE | 2021-12-08 21:38 | NUR ---
2137 Called [facility] window caser to follow up on transportation, spoke with Bela and she said [facility] ETA in an hour. Called [facility] and spoke with charge nurse Kassidy and notified her that patient will be picked up in approximately an hour.
[2021-12-08] MEDS: *INSULIN REGULAR(HUMULIN R)HUM 100 UNIT/ML VIAL SQ PRN (22:17)
--- NOTE | 2021-12-08 23:40 | NUR ---
2340 [facility] but no answer.
--- NOTE | 2021-12-08 23:55 | NUR ---
2355 Called [facility] again to notify that transport is here to tow picker patient but still no answer.
--- NOTE | 2021-12-09 00:05 | NUR ---
0005 Per [facility] EMT they cannot transport without accepting person.
--- NOTE | 2021-12-09 01:15 | NUR ---
0115 [facility] after hours CM called and made aware that patient was not discharged due to no accepting nurse at facility. SEBLE Mejia made aware also about patient not getting transferred to facility and he said ok.
[2021-12-09] MEDS: ACETAMINOPHEN 325 MG TABLET PO PRN (04:54)
--- NOTE | 2021-12-09 07:00 | NUR ---
END OF SHIFT, PATIENT AWAKE AND ALERT A&OX4, NO SOB/ACUTE DISTRESS NOTED DURING THE SHIFT, NO COMPLAINS OF SOB/DISCOMFORT DURING THE NIGHT, TYLENOL GIVEN FOR LIGHT HEADACHE THIS MORNING, CLEARED FOR DC, LAST NIGHT UNABLE TO SEND PATIENT TO FACILITY, UNABLE TO HOLD OFF THE FACILITY, AMBULANCE DID NOT TAKE PATIENT BECAUSE NOBODY LATIN DANCE INSTRUCTOR PHONE, MIKAL AWARE, ALL SAFETY FALL PRECAUTIONS IN PLACE BED LOCK ON, BED ALARM ON, SIDE RAILS UP, CALL LIGHT WITHIN REACH, WILL ENDORSE CONTINUITY OF CARE TO ONCOMING NURSE.
--- NOTE | 2021-12-09 07:30 | NUR ---
MS RN NOTE PATIENT IN BED, RESTING COMFORTABLY , ALL NEEDS ATTENDED,ON RA NO SOB NOTED AT THIS TIME, RT AC HL INTACT BED IN LOWEST AND LOCKED POSITION, CALL LIGHT WITHIN REACH , WILL CONT TO MONITOR
[2021-12-09 08:00] VITALS: BP 129/83
--- NOTE | 2021-12-09 09:00 | NUR ---
ms rn note called to snf for report ,spoke with Shelby also called family member malini ,aware that patient is going to snf,phone number given
[2021-12-09] MEDS: ASPIRIN 81 MG TAB.CHEW PO SCH (09:14)
[2021-12-09] MEDS: GABAPENTIN 300 MG CAPSULE PO SCH (09:14)
[2021-12-09] MEDS: CARVEDILOL 12.5 MG TABLET PO SCH (09:15)
[2021-12-09] MEDS: MECLIZINE HCL 12.5 MG TABLET PO SCH (09:15)
[2021-12-09 09:18] VITALS: BP 129/83
[2021-12-09] MEDS: ATORVASTATIN 10 MG TABLET PO SCH (09:18)
[2021-12-09] MEDS: AMLODIPINE BESYLATE 5 MG TABLET PO SCH (09:18)
[2021-12-09] MEDS: INSULIN REGULAR, HUMAN 100 UNIT/ML 3 ML VIAL SQ PRN (09:23)
[2021-12-09] MEDS: BLOOD SUGAR DIAGNOSTIC 1 EACH STRIP VI SCH (09:28)
--- NOTE | 2021-12-09 11:27 | NUR ---
ms rn note pt at bedside able to ambulate using a walker
--- NOTE | 2021-12-09 12:27 | NUR ---
MS RN NOTE AMBULANCE AT BEDSIDE , REPORT GIVEN, RT FA HL REMOVED ,DRY DRESSING APPLIED, NO BLEEDING NOTED BELONGING RETURN , PATIENT MEDICATION GIVEN BACK, WENT TO SNF WITH STABLE CONDITION
== END 2021-12-09 22:23 | DRG 871 ==
LOC: ER 11:09 → ICU 18:02 → TELE1 12-03 00:59 → MEDSG1 12-06 09:21 → UNDODISIN 12-09 11:52
PROVIDERS: ADMIT Nurse Practitioner Acute Care; ATTEND Nurse Practitioner Acute Care
PROC: 5A09357 Assistance with Respiratory Ventilation, Less than 24 Consecutive Hours, Continuous Positive Airway Pressure (ICD-10-PCS; principal; 2021-12-01)
DX: A41.9 Sepsis, unspecified organism (principal); I21.A1 Myocardial infarction type 2; J96.01 Acute respiratory failure with hypoxia; J15.9 Unspecified bacterial pneumonia; J44.1 Chronic obstructive pulmonary disease with (acute) exacerbation; E87.2 Acidosis; J44.0 Chronic obstructive pulmonary disease with (acute) lower respiratory infection; E11.9 Type 2 diabetes mellitus without complications; G89.4 Chronic pain syndrome; H10.9 Unspecified conjunctivitis; I25.10 Atherosclerotic heart disease of native coronary artery without angina pectoris; Z20.822 Contact with and (suspected) exposure to COVID-19; Z91.19 Patient's noncompliance with other medical treatment and regimen; F17.210 Nicotine dependence, cigarettes, uncomplicated; R53.1 Weakness; E80.6 Other disorders of bilirubin metabolism; Z71.6 Tobacco abuse counseling; Z79.4 Long term (current) use of insulin; Z91.81 History of falling; I10 Essential (primary) hypertension
CPT/HCPCS: 36415; 36600; 71045-TC; 72100-TC; 75574; 76700-TC; 80048-TC; 80053-TC; 80061-TC; 80076-TC; 81001; 82803-TC; 82962-TC; 83605-TC; 83735-TC; 84100-TC; 84484-TC; 85025-TC; 85378-TC; 85730-TC; 87040-TC; 87081-TC; 87086-TC; 92526; 92611-TC; 93307-TC; 94760-TC; 94799-TC; 97116-TC; 97530-TC; 99082-TC; A4349; A6403; C9803; G0378; J0692; J0696; J1650; J1815; J1940; J1956; J2405; J3370; J3475; J3490; J7030; J7050; J7060; J8597; Q9967

== ENCOUNTER 2022-01-17 18:10 | Inpatient (IN) | payer MEDICARE, OTHER ==
[~2022-01-17] VITALS: Ht 180.3 cm; Wt 89.8 kg
[2022-01-17] MEDS: methylPREDNISolone SOD SUCC 40 MG/ML VIAL IV SCH (01:36)
[~2022-01-17 18:10] MED LIST: AMLO-212 PO; ASPI-1169 PO; ATOR10TA PO; CARV12.52 PO; GABA300C PO; HYDR-3980 PO; INSU100I26 SQ; LEVO250T59 PO; LORA-259 PO; LURA60TA3 PO; MECL-182 PO; METF-442 PO; ZOLP10TA2 PO
--- NOTE | 2022-01-17 18:10 | NUR ---
CALLED CODE STROKE
--- NOTE | 2022-01-17 18:15 | NUR ---
PT TO CT VIA ACLS PROTOCALS.
[2022-01-17] MEDS ORDERED: ETOMIDATE 2 MG/ML VIAL IV ONE ×2 (18:20→18:30)
[2022-01-17] MEDS ORDERED: SUCCINYLCHOLINE CHLORIDE 20 MG/ML VIAL IV ONE ×2 (18:20→18:30)
[2022-01-17] MEDS ORDERED: IOHEXOL-350 100 ML VIAL IV ONE (18:22)
[2022-01-17] MEDS ORDERED: GABA-532 PO (18:26)
[2022-01-17] MEDS ORDERED: INSU100V3 SQ (18:26)
[2022-01-17] MEDS ORDERED: CARV12.52 PO (18:26)
[2022-01-17] MEDS ORDERED: ATOR10TA PO (18:26)
[2022-01-17] MEDS ORDERED: ASPI-1169 PO (18:26)
[2022-01-17] MEDS ORDERED: IV NS 0.9% 500 ML BAG IV ONE (18:30)
--- NOTE | 2022-01-17 18:43 | NUR ---
FOCUS IMAGING (RADIOLOGY) SPEAKING W/ DR. KNIGHT
[2022-01-17 18:44] LABS: CALCIUM, SERUM 8.5 mg/dL (8.5-10.1); CARBON DIOXIDE 28 mmol/L (21-32); CHLORIDE 103 mmol/L (98-107); CREATININE 1.3 mg/dL (0.6-1.3); POTASSIUM 5.1 mmol/L (3.5-5.1); SODIUM SERUM 137 mmol/L (136-145); UREA NITROGEN, BLOOD 20 mg/dL (7-18)
[2022-01-17 18:50] LABS: ALANINE AMINOTRANSFERASE 34 U/L (12-78); ALBUMIN 3.5 g/dL (3.4-5.0); ALKALINE PHOSPHATASE 64 U/L (46-116); ASPARTATE AMINOTRANSFERASE 32 U/L (15-37); BILIRUBIN,DIRECT 0.3 mg/dL (0.0-0.2); BILIRUBIN,TOTAL 0.9 mg/dL (0.2-1.0); TOTAL PROTEIN, SERUM 7.8 g/dL (6.4-8.2)
--- NOTE | 2022-01-17 18:50 | NUR ---
RT RESPONDED TO ER FOR INTUBATION. PT INTUBATED BY ER PHYSICIAN 7.5 @ 23CM. POSITIVE COLOR CHANGE MIST IN THE TUBE, BILATERAL CHEST RISE, BILATERAL BREATH SOUNDS. PT PLACED ON VENT AC 18 500 50% +5. Addendum: 01/17/22 at 1919 by DIANNA LEONARD RT Amended: Links added.
[2022-01-17 18:51] LABS: GLUCOSE 352 mg/dL (74-106)
[2022-01-17] MEDS ORDERED: PROPOFOL 100 ML ONE (19:06)
--- NOTE | 2022-01-17 19:11 | NUR ---
covid swab taken and sent to lab
--- NOTE | 2022-01-17 19:17 | NUR ---
BIB FAMILY VIA [facility],ALTERED,UNKNOWN LKWT. UPON ASSESSMENT CODE STROKE PREVIOUSLY ACTIVATED AND PT INTUBATED. PROPOFOL INFUSING AT 25MCG/KG/MIN. PT REMAINS ON SUPERVISOR PROP MAKING AND PULSE OX AND V/S WNL.
[2022-01-17] MEDS ORDERED: PROPOFOL 100 ML IV ONE (19:30)
[2022-01-17] MEDS ORDERED: ALBUTEROL FS 2.5 MG/3 ML VIAL.NEB NEB PRN (20:00)
[2022-01-17] MEDS ORDERED: ONDANSETRON HCL/PF 4 MG/2 ML VIAL IVP PRN (20:00)
[2022-01-17] MEDS ORDERED: MAGNESIUM HYDROXIDE 30 ML UDC PO PRN (20:00)
[2022-01-17] MEDS ORDERED: ASPIRIN 300 MG/SUPP.RECT RC ONE ×2 (20:00→20:12)
[2022-01-17] MEDS ORDERED: MAG HYDROX/AL HYDROX/SIMETH 30 ML UDC PO PRN (20:00)
[2022-01-17] MEDS ORDERED: DEXTROSE 50%-WATER 50 ML DISP.SYRIN IV PRN (20:00)
[2022-01-17] MEDS ORDERED: Z GUARD REMEDY 4 OZ OINT TP PRN (20:00)
[2022-01-17 20:06] LABS: BASOPHILS # (AUTO) 0.1 K/uL (0.0-0.2); BASOPHILS % (AUTO) 0.6 % (0.0-2.0); EOSINOPHILS % (AUTO) 0.7 % (0.0-6.0); HEMATOCRIT 46 % (39-51); HEMOGLOBIN 15.5 g/dL (13.5-17.5); LYMPHOCYTES # (AUTO) 1.8 K/uL (0.8-4.8); LYMPHOCYTES % (AUTO) 13.7 % (20.0-44.0); MEAN CORPUSCULAR HGB CONC 34 g/dl (31.0-36.0); MEAN CORPUSCULAR VOLUME 89 fL (80-96); MONOCYTES # (AUTO) 1.2 K/uL (0.1-1.30); NEUTROPHILS # (AUTO) 10.2 K/uL (1.8-8.9); PLATELET COUNT (AUTO) 337 K/uL (150-450); RED BLOOD CELL COUNT(AUTO) 5.15 MIL/uL (4.5-6.0); WHITE BLOOD COUNT (AUTO) 13.4 K/uL (4.3-11.0)
--- NOTE | 2022-01-17 20:35 | NUR ---
16FR FC INSERTED. URINE SAMPLE SENT TO LAB
[2022-01-17 21:18] LABS: ABG BASE EXCESS -5.6 mmol/L; ABG PCO2 37.6 mmHg (35.0-45.0); ABG PH 7.335 (7.350-7.450); ABG PO2 101.1 mmHg (75.0-100.0); COHb 3.7 % (0.5-1.5); MetHb 0.2 % (0.0-1.5); O2Hb 93.4 % (94.0-97.0); PEEP,BG 5 cm H2O; SITE, ABG Left Radial; VENT MODE, BG AC 18 500 50% +5; VT, ABG 500 mL
--- NOTE | 2022-01-17 21:28 | NUR ---
16FR OGT INSERTED 75 AT THE LIP PLACEMENT CHECKED VIA AUSCULTATION AND GASTRIC CONTENT ASPIRATION
--- NOTE | 2022-01-17 21:40 | NUR ---
DR. ANTONIA MONROY ON PHONE CALL WITH DR. MEME SHAFFER
--- NOTE | 2022-01-17 21:51 | NUR ---
SECOND 20G IV ESTABLISHED AT PER ICU PROTOCOL
[2022-01-18] VITALS (23 sets, daily range): BP systolic 88–123; BP diastolic 55–76
[2022-01-18] MEDS ORDERED: PROPOFOL 100 ML ONE ×3 (00:28→08:48)
[2022-01-18] MEDS ORDERED: CEFEPIME 1 GM in IV D5W 50 ML IV SCH (01:21)
[2022-01-18] MEDS ORDERED: ENOXAPARIN SODIUM 40 MG/0.4 ML DISP.SYRIN SQ ONE (01:29)
[2022-01-18] MEDS ORDERED: MORPHINE SULFATE INJ 4 MG/ML DISP.SYRIN IV PRN (01:30)
[2022-01-18] MEDS ORDERED: INSULIN REGULAR, HUMAN 100 UNIT/ML 10 ML VIAL ONE (01:30)
[2022-01-18] MEDS ORDERED: methylPREDNISolone SOD SUCC 40 MG/ML VIAL ONE ×2 (01:30→08:32)
[2022-01-18] MEDS ORDERED: CEFEPIME 1 GM VIAL ONE (01:30)
[2022-01-18] MEDS: methylPREDNISolone SOD SUCC 40 MG/ML VIAL IV SCH ×4 (01:38→21:02)
[2022-01-18] MEDS: BLOOD SUGAR DIAGNOSTIC 1 EACH STRIP IN SCH ×4 (01:38→17:27)
[2022-01-18] MEDS: ENOXAPARIN SODIUM 40 MG/0.4 ML DISP.SYRIN SQ SCH ×2 (01:46→21:03)
[2022-01-18] MEDS: INSULIN REGULAR, HUMAN 100 UNIT/ML 3 ML VIAL SQ PRN ×3 (01:47→17:26)
[2022-01-18 05:56] LABS: BASOPHILS % (AUTO) 0.4 % (0.0-2.0); EOSINOPHILS % (AUTO) 0.3 % (0.0-6.0); HEMATOCRIT 40 % (39-51); HEMOGLOBIN 13.8 g/dL (13.5-17.5); LYMPHOCYTES # (AUTO) 1.1 K/uL (0.8-4.8); LYMPHOCYTES % (AUTO) 9.1 % (20.0-44.0); MEAN CORPUSCULAR HGB CONC 35 g/dl (31.0-36.0); MEAN CORPUSCULAR VOLUME 89 fL (80-96); MONOCYTES # (AUTO) 0.2 K/uL (0.1-1.30); NEUTROPHILS # (AUTO) 10.3 K/uL (1.8-8.9); NEUTROPHILS % (AUTO) 88.2 % (43.0-81.0); PLATELET COUNT (AUTO) 228 K/uL (150-450); RED BLOOD CELL COUNT(AUTO) 4.47 MIL/uL (4.5-6.0); WHITE BLOOD COUNT (AUTO) 11.6 K/uL (4.3-11.0)
[2022-01-18 06:15] LABS: CALCIUM, SERUM 7.6 mg/dL (8.5-10.1); CREATININE 0.6 mg/dL (0.6-1.3); MAGNESIUM 1.4 mg/dL (1.8-2.4); PHOSPHORUS 2.9 mg/dL (2.5-4.9); POTASSIUM 4.3 mmol/L (3.5-5.1)
[2022-01-18 06:24] LABS: THYROID STIMULATING HORMONE 0.416 uIU/mL (0.358-3.74)
--- NOTE | 2022-01-18 07:20 | NUR ---
RECEIVED PT from TIM RN PT INTUBATION ORALY ETT FR. 7.5 lip line 23 TV [id number] 50% AC 18 ON PROPEFORL DRIP 45MCG/kg/min at 24 ml /hr
--- NOTE | 2022-01-18 07:53 | NUR ---
BED GIVEN 254 IN 20 MINUTES
--- NOTE | 2022-01-18 08:00 | NUR ---
ADD PEEP 5
--- NOTE | 2022-01-18 08:19 | NUR ---
HAND TO LUIS MIGUEL PT TRANSFER TO ROOM 256 VIA RELL intubated oraly with OGT
[2022-01-18] MEDS ORDERED: FUROSEMIDE 40 MG/4 ML VIAL IV SCH (09:00)
[2022-01-18] MEDS: PROPOFOL 100 ML IV PRN ×6 (09:07→22:01)
[2022-01-18] MEDS: PANTOPRAZOLE 40 MG VIAL IV SCH (09:35)
[2022-01-18] MEDS: CEFEPIME 2 GM in IV D5W 100 ML IV SCH ×2 (09:36→15:38)
[2022-01-18] MEDS: Magnesium 1GM/D5W 100ML PREMIX 100 ML IV SCH ×4 (10:15→13:32)
[2022-01-18] MEDS: ASPIRIN 81 MG TAB.CHEW NG SCH (11:19)
[2022-01-18 11:55] LABS: ABG BASE EXCESS -5.3 mmol/L; ABG OXYGEN SATURATION 97.9 % (92.0-98.5); ABG PCO2 35.4 mmHg (35.0-45.0); ABG PH 7.357 (7.350-7.450); ABG PO2 111.1 mmHg (75.0-100.0); AaDO2 205.6 mmHg; COHb 1.1 % (0.5-1.5); MetHb 0.1 % (0.0-1.5); O2Hb 96.7 % (94.0-97.0); PEEP,BG 5 cm H2O; SITE, ABG Right Radial; VT, ABG 500 mL
[2022-01-18] MEDS: IV NS 0.9% 1,000 ML IV PRN (15:53)
[2022-01-18] MEDS: IV NS 0.9% 250 ML IV PRN (19:03)
[2022-01-19] VITALS (28 sets, daily range): BP systolic 101–161; BP diastolic 64–101
[2022-01-19] MEDS: CEFEPIME 2 GM in IV D5W 100 ML IV SCH ×2 (00:13→08:04)
[2022-01-19] MEDS: BLOOD SUGAR DIAGNOSTIC 1 EACH STRIP IN SCH ×5 (00:13→23:25)
[2022-01-19] MEDS: INSULIN REGULAR, HUMAN 100 UNIT/ML 3 ML VIAL SQ PRN ×4 (00:18→23:28)
[2022-01-19] MEDS: PROPOFOL 100 ML IV PRN ×3 (00:41→06:56)
[2022-01-19 04:07] LABS: HEMATOCRIT 38 % (39-51); HEMOGLOBIN 13.1 g/dL (13.5-17.5); LYMPHOCYTES # (AUTO) 1.1 K/uL (0.8-4.8); LYMPHOCYTES % (AUTO) 6.1 % (20.0-44.0); MEAN CORPUSCULAR HGB CONC 34 g/dl (31.0-36.0); MEAN CORPUSCULAR VOLUME 89 fL (80-96); MONOCYTES # (AUTO) 0.7 K/uL (0.1-1.30); NEUTROPHILS % (AUTO) 89.9 % (43.0-81.0); PLATELET COUNT (AUTO) 219 K/uL (150-450); RED BLOOD CELL COUNT(AUTO) 4.32 MIL/uL (4.5-6.0); WHITE BLOOD COUNT (AUTO) 17.8 K/uL (4.3-11.0)
[2022-01-19 04:15] LABS: CREATININE 0.9 mg/dL (0.6-1.3); MAGNESIUM 2.4 mg/dL (1.8-2.4); PHOSPHORUS 3.4 mg/dL (2.5-4.9); POTASSIUM 3.9 mmol/L (3.5-5.1)
[2022-01-19] MEDS: methylPREDNISolone SOD SUCC 40 MG/ML VIAL IV SCH ×3 (04:57→20:17)
[2022-01-19] MEDS: IV NS 0.9% 1,000 ML IV PRN (07:32)
--- NOTE | 2022-01-19 07:33 | NUR ---
RECEIVED PATIENT REPORT FROM [facility]. PATIENT INTUBATED, WITH PROPOFOL RUNNING ORDERED. VITAL SIGNS STABLE. POSSIBLE EXTUBATION TODAY. SAFETY MEASURES IMPLEMENTED. WILL CONTINUE PLAN OF CARE AND ANTICIPATE NEEDS.
[2022-01-19] MEDS: PANTOPRAZOLE 40 MG VIAL IV SCH (08:03)
[2022-01-19] MEDS: ASPIRIN 81 MG TAB.CHEW NG SCH (08:04)
--- NOTE | 2022-01-19 09:23 | NUR ---
ICU/RN PT OFF SEDATION PER DR. TRORES ORDER TO ASSESS PT'S MENTAL STATUS AND DO A BREATHING TRIAL. PT IS AWAKE AND ALERT, FOLLOWING SIMPLE COMMANDS AT THIS TIME. RT NOTIFIED, WILL DRAW ABG SHORTLY TO ASSESS IF PT IS ELIGIBLE FOR EXTUBATION.
[2022-01-19] MEDS: INSULIN GLARGINE, 100 UNIT/ML CARTRIDGE SQ SCH ×2 (09:45→21:00)
[2022-01-19] MEDS ORDERED: MEROPENEM 1 G in IV NS 0.9% 100 ML IV SCH (13:00)
[2022-01-19] MEDS ORDERED: FENTANYL TD PATCH (25 MCG/HR) 25 MCG/HR PATCH.TD72 TD SCH (13:00)
[2022-01-19] MEDS ORDERED: NALOXONE HCL 0.4 MG/ML AMPUL IV PRN (13:00)
--- NOTE | 2022-01-19 17:09 | NUR ---
PER NEUROLOGY, PATIENT HAS MYOCLONUS. DEPAKOTE WILL MAKE PATIENT "TOO SEDATED". WILL CONTINUE TREATMENT PLAN
[2022-01-19] MEDS ORDERED: DIVALPROEX SODIUM 250 MG TABLET.DR PO SCH (17:30)
--- NOTE | 2022-01-19 19:14 | NUR ---
HAND OFF REPORT GIVEN TO ELIER GREENE.
--- NOTE | 2022-01-19 19:54 | NUR ---
ICU/RN: PT NONCOMPLIANT WITH INSTRUCTIONS TO KEEP VENTURI MASK ON. DESATURATES QUICKLY WHEN MASK IS REMOVED. RESTRAINT PROTOCOL INITIATED.
[2022-01-19] MEDS ORDERED: VALPROATE 250 MG in IV D5W 100 ML IV SCH (20:00)
[2022-01-19] MEDS: PIPERACILLIN /TAZOBACTAM 3.375 G in IV D5W 100 ML IV SCH (21:19)
[2022-01-19] MEDS: ENOXAPARIN SODIUM 40 MG/0.4 ML DISP.SYRIN SQ SCH (21:19)
[2022-01-20] VITALS (27 sets, daily range): BP systolic 117–189; BP diastolic 40–108
[2022-01-20] MEDS: IV NS 0.9% 1,000 ML IV PRN (00:10)
[2022-01-20] MEDS ORDERED: hydrALAZINE HCL IV 20 MG VIAL IV PRN (03:00)
[2022-01-20 04:36] LABS: HEMATOCRIT 41 % (39-51); LYMPHOCYTES % (AUTO) 7.2 % (20.0-44.0); MEAN CORPUSCULAR HGB CONC 34 g/dl (31.0-36.0); MEAN CORPUSCULAR VOLUME 90 fL (80-96); MONOCYTES # (AUTO) 0.9 K/uL (0.1-1.30); MONOCYTES % (AUTO) 6.5 % (2.0-12.0); NEUTROPHILS # (AUTO) 12.5 K/uL (1.8-8.9); NEUTROPHILS % (AUTO) 86.3 % (43.0-81.0); PLATELET COUNT (AUTO) 242 K/uL (150-450); RED BLOOD CELL COUNT(AUTO) 4.55 MIL/uL (4.5-6.0); WHITE BLOOD COUNT (AUTO) 14.5 K/uL (4.3-11.0)
[2022-01-20] MEDS: BLOOD SUGAR DIAGNOSTIC 1 EACH STRIP IN SCH ×3 (05:16→17:50)
[2022-01-20] MEDS: methylPREDNISolone SOD SUCC 40 MG/ML VIAL IV SCH ×2 (05:17→12:24)
[2022-01-20] MEDS: PIPERACILLIN /TAZOBACTAM 3.375 G in IV D5W 100 ML IV SCH ×3 (05:17→21:43)
[2022-01-20 05:23] LABS: VALPROIC ACID < 3 ug/mL (50-100)
[2022-01-20 05:24] LABS: CALCIUM, SERUM 8.5 mg/dL (8.5-10.1); CARBON DIOXIDE 26 mmol/L (21-32); CHLORIDE 108 mmol/L (98-107); CREATININE 0.8 mg/dL (0.6-1.3); GLUCOSE 175 mg/dL (74-106); POTASSIUM 4.5 mmol/L (3.5-5.1); SODIUM SERUM 142 mmol/L (136-145); UREA NITROGEN, BLOOD 19 mg/dL (7-18)
[2022-01-20] MEDS: INSULIN REGULAR, HUMAN 100 UNIT/ML 3 ML VIAL SQ PRN ×3 (05:25→18:30)
[2022-01-20] MEDS: INSULIN GLARGINE, 100 UNIT/ML CARTRIDGE SQ SCH ×2 (08:43→22:01)
[2022-01-20] MEDS: PANTOPRAZOLE 40 MG VIAL IV SCH (08:44)
[2022-01-20] MEDS: ASPIRIN 81 MG TAB.CHEW NG SCH (08:44)
[2022-01-20] MEDS: ACETYLCYSTEINE 10% SOLN 400 MG/4 ML VIAL NEB SCH ×2 (10:00→15:30)
[2022-01-20] MEDS: SCOPOLAMINE PATCH 1 MG/72HR TD SCH (12:24)
[2022-01-20] MEDS: GABAPENTIN 300 MG CAPSULE PO SCH ×2 (12:26→17:00)
[2022-01-20] MEDS: IV D5/ 0.9% NACL 1,000 ML IV PRN (12:42)
--- NOTE | 2022-01-20 18:05 | NUR ---
Pt acute encephalopathy resolving. More awake and responsive. Acute hypoxic respiratory failure resolving. S/P extubation 01/19/22. encourage to CDB. Cont to present with increease oral secretion. Frequent oral care and suctioning provided. Presents with Myoclonus body and hand tremors. Remains on Depakote as prescribed by MD Pt remains high risk for Aspiration pneumonia. HOB @45. Pt able to clear oral secretions with good gag and cough reflex. Elevated BS noted. MD aware. remains NPO. Cont Insulin sliding scale as ordered. Pt with Hx of chronic pain syndrome. Chronic nicotine dependence. Drug Abuse Cont medical managment with IV Abx. Zosyn Currently NPO on D5NS. Awaiting for speech therapy eval. Cont Accucheck Q6H and Insulin sliding Coverage Dr. Carroll updated on plan of care. Cont to monitor and implement plan of care.
[2022-01-20 18:54] LABS: ABG BASE EXCESS -4.2 mmol/L; ABG PCO2 33.1 mmHg (35.0-45.0); ABG PH 7.392 (7.350-7.450); ABG PO2 107.2 mmHg (75.0-100.0); AaDO2 139.9 mmHg; COHb 0.8 % (0.5-1.5); MetHb 0.2 % (0.0-1.5); SITE, ABG Right Radial
--- NOTE | 2022-01-20 19:30 | NUR ---
ICU/SUPERVISOR MAPPING DR SNEED CAME TO SEE PT AB OUT PAIN MGNT, BUT NOTHING WAS ORDERED. MD THINK PT MIGHT HAVE OVERDOSE, MORPHINE WAS D/C'D. WILL MONITOR THIS PT AND HIS PAIN.
[2022-01-20] MEDS ORDERED: CLONIDINE HCL 0.3 MG/24H PTWK 1 EA PATCH TD SCH (20:00)
--- NOTE | 2022-01-20 20:35 | NUR ---
ICU/HOT DIP PLATING SUPERVISOR CLONIDINE PATCH WASN'T GIVEN TILL LATER DUE TO PHARMACY HAD NOT BROUGHT UP. WILL GIVE WHEN PHARMACY BRINGS UP.
[2022-01-20] MEDS: CARVEDILOL 12.5 MG TABLET PO SCH (21:00)
[2022-01-20] MEDS: VALPROATE 250 MG in IV D5W 100 ML IV SCH (21:18)
[2022-01-20] MEDS: ENOXAPARIN SODIUM 40 MG/0.4 ML DISP.SYRIN SQ SCH (21:32)
--- NOTE | 2022-01-20 21:35 | NUR ---
ICU/INVISIBLE BRACES ORTHODONTIST COREG WAS HELD DUE TO PT IS NPO AT THIS TIME HOWEVER THE CLONIDINE PATCH WAS GIVEN.
[2022-01-21] VITALS (16 sets, daily range): BP systolic 102–154; BP diastolic 57–81
[2022-01-21] MEDS: ACETYLCYSTEINE 10% SOLN 400 MG/4 ML VIAL NEB SCH ×4 (00:07→23:39)
[2022-01-21] MEDS: IPRATROPIUM NEB FS 0.5 MG/2.5 ML AMPUL.NEB NEB PRN (00:09)
[2022-01-21] MEDS: BLOOD SUGAR DIAGNOSTIC 1 EACH STRIP IN SCH ×5 (00:30→21:31)
[2022-01-21] MEDS: INSULIN REGULAR, HUMAN 100 UNIT/ML 3 ML VIAL SQ PRN ×3 (00:33→18:30)
[2022-01-21] MEDS: IV D5/ 0.9% NACL 1,000 ML IV PRN (01:26)
[2022-01-21] MEDS: IV NS 0.9% 250 ML IV PRN (01:28)
[2022-01-21 05:16] LABS: BASOPHILS % (AUTO) 0.1 % (0.0-2.0); HEMATOCRIT 37 % (39-51); HEMOGLOBIN 12.9 g/dL (13.5-17.5); LYMPHOCYTES % (AUTO) 19.4 % (20.0-44.0); MEAN CORPUSCULAR HGB CONC 35 g/dl (31.0-36.0); MEAN CORPUSCULAR VOLUME 89 fL (80-96); MONOCYTES % (AUTO) 9.6 % (2.0-12.0); NEUTROPHILS # (AUTO) 7.3 K/uL (1.8-8.9); NEUTROPHILS % (AUTO) 70.9 % (43.0-81.0); PLATELET COUNT (AUTO) 212 K/uL (150-450); RED BLOOD CELL COUNT(AUTO) 4.15 MIL/uL (4.5-6.0); WHITE BLOOD COUNT (AUTO) 10.3 K/uL (4.3-11.0)
[2022-01-21] MEDS: PIPERACILLIN /TAZOBACTAM 3.375 G in IV D5W 100 ML IV SCH ×3 (05:19→21:17)
[2022-01-21] MEDS: VALPROATE 250 MG in IV D5W 100 ML IV SCH (05:28)
--- NOTE | 2022-01-21 05:30 | NUR ---
ICU/LAMP CLEANER STREET LIGHT RESTRAINTS WERE REMOVED. PT APPEARS TO BE MORE ALERT AND ORT. WILL CONTINUE TO MONITOR THIS PT.
[2022-01-21 05:42] LABS: CALCIUM, SERUM 8.5 mg/dL (8.5-10.1); CREATININE 0.8 mg/dL (0.6-1.3); POTASSIUM 3.8 mmol/L (3.5-5.1)
[2022-01-21] MEDS ORDERED: ASPIRIN 81 MG TAB.CHEW PO SCH (09:00)
[2022-01-21] MEDS: AMLODIPINE BESYLATE 5 MG TABLET PO SCH (09:00)
[2022-01-21] MEDS: GABAPENTIN 300 MG CAPSULE PO SCH ×3 (09:00→16:33)
[2022-01-21] MEDS: ATORVASTATIN 10 MG TABLET PO SCH (09:00)
[2022-01-21] MEDS: CARVEDILOL 12.5 MG TABLET PO SCH ×2 (09:00→21:00)
[2022-01-21] MEDS: ASPIRIN 81 MG TAB.CHEW NG SCH (09:00)
--- NOTE | 2022-01-21 09:08 | NUR ---
Pt PASS swallow eval per speech therapist.
[2022-01-21] MEDS: PANTOPRAZOLE 40 MG VIAL IV SCH (09:09)
[2022-01-21] MEDS: methylPREDNISolone SOD SUCC 40 MG/ML VIAL IV SCH (09:09)
[2022-01-21] MEDS: INSULIN GLARGINE, 100 UNIT/ML CARTRIDGE SQ SCH ×2 (09:15→21:34)
--- NOTE | 2022-01-21 12:00 | NUR ---
RN notes Patient was transferred from ICU at 1200, escorted by nurse. Patient was alert and A/O x1. On tele monitor, SR. SpO2 WNL with 2L oxygen via nasal cannula. Had a Lynne catheter with yellow and clear urine drained. Present with one mid-line on left upper arm, patent. Skin was intact upon transfer. Follow aspiration precaution. Placed call light within easy reach. Side rail was upX3 and bed placed in the lowest position.
[2022-01-21] MEDS: VALPROIC ACID 250 MG/5 ML UDC PO SCH ×2 (12:40→16:33)
[2022-01-21] MEDS ORDERED: DEXTROSE 50%-WATER 50 ML DISP.SYRIN IV PRN (18:00)
--- NOTE | 2022-01-21 18:00 | NUR ---
RN notes Patient's coughing after meal, no desaturation, vital signs stable. Diet changed to soft diet per MD order. HOB elevated. Will endorse next shift RN to continue to monitor and care.
[2022-01-21] MEDS: BLOOD SUGAR DIAGNOSTIC 1 EACH STRIP VI SCH ×2 (18:29→22:07)
--- NOTE | 2022-01-21 19:15 | NUR ---
RN NOTES RECEIVED REPORT FROM MORNING RN. PATIENT IN BED A/O X2 ABLE TO MAKE NEEDS KNOWN. WITH OXYGEN INHALATION AT 2LPM TOLERATING WELL SATING 97%. NO SOB NO DISTRESS NOTED AT THIS TIME. WITH SHEELA MIDLINE PATENT FLUSHES WELL. ALL OSHEH2M MEASURES IN PLACE AT ALL TIMES. HOB ELEVATED. CALL LIGHT WITHIN REACH. WILL CLOSELY MONITOR PATIENT
--- NOTE | 2022-01-21 20:55 | NUR ---
RN NOTES RELAYED DR FLOWERS BLOOD CULTURE RESULT GRAM POSITIVE COCCI IN CLUSTER.
[2022-01-21] MEDS: ENOXAPARIN SODIUM 40 MG/0.4 ML DISP.SYRIN SQ SCH (21:35)
[2022-01-21] MEDS: *INSULIN REGULAR(HUMULIN R)HUM 100 UNIT/ML VIAL SQ PRN (21:38)
--- NOTE | 2022-01-21 21:40 | NUR ---
RN NOTES COREG HELD DUE TO HR 44. WILL CONTINUE TO MONITOR THE PATIENT
[2022-01-21] MEDS ORDERED: VANCOMYCIN 2 GM in IV D5W 500 ML IV ONE (22:30)
[2022-01-22] MEDS ORDERED: VANCOMYCIN 1 GM VIAL ONE
[2022-01-22 01:00] VITALS: BP 154/81
[2022-01-22] MEDS ORDERED: VANCOMYCIN 2 GM in IV D5W 500 ML IV ONE (01:00)
[2022-01-22 04:00] VITALS: BP 99/61
[2022-01-22] MEDS: PIPERACILLIN /TAZOBACTAM 3.375 G in IV D5W 100 ML IV SCH ×3 (04:43→21:48)
--- NOTE | 2022-01-22 06:48 | NUR ---
RN NOTES \PATIENT REMAINS STABLE NO SIGNIFICANT CHANGES IN HEALTH CONDITION. ALL DUE MEDS GIVEN ORDERED. STILL WITH SHEELA MIDLINE PATENT FLUSHES WELL. ON OXYGEN INHALATION AT 2LPM SATING 97% NO SOB NO DISTRESS NOTED. ALL SAFETY MEASURES IN PLACE AT ALL TIMES. HOB ELEVATED. CALL LIGHT WITHIN REACH. FREQUENT VISUAL MONITORING RENDERED. WILL ENDORSED TO MORNING NURSE FOR JESSICA
[2022-01-22 06:56] LABS: BASOPHILS % (AUTO) 0.1 % (0.0-2.0); HEMATOCRIT 37 % (39-51); HEMOGLOBIN 12.5 g/dL (13.5-17.5); LYMPHOCYTES # (AUTO) 3.2 K/uL (0.8-4.8); MEAN CORPUSCULAR HGB CONC 34 g/dl (31.0-36.0); MEAN CORPUSCULAR VOLUME 90 fL (80-96); MONOCYTES # (AUTO) 0.6 K/uL (0.1-1.30); MONOCYTES % (AUTO) 6.6 % (2.0-12.0); NEUTROPHILS # (AUTO) 5.3 K/uL (1.8-8.9); NEUTROPHILS % (AUTO) 57.3 % (43.0-81.0); PLATELET COUNT (AUTO) 175 K/uL (150-450); WHITE BLOOD COUNT (AUTO) 9.2 K/uL (4.3-11.0)
[2022-01-22 07:18] LABS: CALCIUM, SERUM 8.5 mg/dL (8.5-10.1); CREATININE 0.8 mg/dL (0.6-1.3); POTASSIUM 3.9 mmol/L (3.5-5.1)
--- NOTE | 2022-01-22 07:21 | NUR ---
RN OPENING NOTES RECEIVED PATIENT IN BED A/O X2 ABLE TO MAKE NEEDS KNOWN. WITH OXYGEN INHALATION AT 2LPM TOLERATING WELL. NO SOB NO DISTRESS NOTED AT THIS TIME. WITH SHEELA MIDLINE PATENT FLUSHES WELL. ALL SAFETY MEASURES IN PLACE. HOB ELEVATED. CALL LIGHT WITHIN REACH.
[2022-01-22] MEDS: BLOOD SUGAR DIAGNOSTIC 1 EACH STRIP VI SCH ×4 (07:30→22:23)
[2022-01-22 08:00] VITALS: BP 115/66
[2022-01-22] MEDS: ACETYLCYSTEINE 10% SOLN 400 MG/4 ML VIAL NEB SCH ×3 (08:05→23:16)
[2022-01-22] MEDS: BLOOD SUGAR DIAGNOSTIC 1 EACH STRIP IN SCH ×4 (08:58→22:23)
[2022-01-22] MEDS: GABAPENTIN 300 MG CAPSULE PO SCH ×3 (08:59→17:55)
[2022-01-22] MEDS: methylPREDNISolone SOD SUCC 40 MG/ML VIAL IV SCH (08:59)
[2022-01-22] MEDS: VALPROIC ACID 250 MG/5 ML UDC PO SCH ×3 (08:59→17:55)
[2022-01-22] MEDS: ATORVASTATIN 10 MG TABLET PO SCH (08:59)
[2022-01-22] MEDS: PANTOPRAZOLE 40 MG VIAL IV SCH (08:59)
[2022-01-22] MEDS: ASPIRIN 81 MG TAB.CHEW NG SCH (08:59)
[2022-01-22] MEDS: CARVEDILOL 12.5 MG TABLET PO SCH ×2 (09:00→21:00)
[2022-01-22] MEDS: AMLODIPINE BESYLATE 5 MG TABLET PO SCH (09:01)
[2022-01-22] MEDS: INSULIN GLARGINE, 100 UNIT/ML CARTRIDGE SQ SCH ×2 (09:05→22:14)
[2022-01-22] MEDS: VANCOMYCIN 1 GM in IV D5W 250ml IV SCH ×2 (10:30→17:55)
[2022-01-22 12:00] VITALS: BP 101/63
[2022-01-22] MEDS: INSULIN REGULAR, HUMAN 100 UNIT/ML 3 ML VIAL SQ PRN (12:23)
[2022-01-22 16:00] VITALS: BP 104/65
--- NOTE | 2022-01-22 18:48 | NUR ---
RN CLOSING NOTES PATIENT REMAINS STABLE NO SIGNIFICANT CHANGES IN HEALTH CONDITION. ALL DUE MEDS GIVEN ORDERED. STILL WITH SHEELA MIDLINE PATENT FLUSHES WELL. ON OXYGEN INHALATION AT 2LPM SATING 97% NO SOB NO DISTRESS NOTED. ALL SAFETY MEASURES IN PLACE AT ALL TIMES. HOB ELEVATED. CALL LIGHT WITHIN REACH. FREQUENT VISUAL MONITORING RENDERED. WILL ENDORSED TO NIGHT NURSE FOR JESSICA
--- NOTE | 2022-01-22 19:30 | NUR ---
CLAY MACHINE OPERATOR OPENING NOTES RECEIVED PATIENT IN BED ASLEEP, EASY TO AROUSE. A/O X1-2, DOESN'T REMEMBER WHAT HAPPENED TO HIM. ON O2 AT 3LPM VIA NASAL CANULA. BREATHING EVEN AND NON-LABORED. NOT IN APPARENT DISTRESS. DENIES PAIN OR DISCOMFORT. ON TELE MONITOR READING SINUS BRADYCARDIA AT 40-48 BPM. HAS LEFT UPPER ARM MIDLINE AND SALINE LOCKED. NO S/S OF INFILTRATION NOTED. HAS INDWELLING SHABAZZ CATHETER DRAINING CLEAR BETH URINE TO BAG BY GRAVITY. SAFETY PRECAUTIONS IN PLACE: BED LOW AND LOCKED, BED ALARM ON, SIDE RAILS UP X2, CALL LIGHT WITHIN REACH. WILL CONTINUE POC.
[2022-01-22 20:00] VITALS: BP 109/63
[2022-01-22] MEDS: *INSULIN REGULAR(HUMULIN R)HUM 100 UNIT/ML VIAL SQ PRN (22:16)
[2022-01-22] MEDS: ENOXAPARIN SODIUM 40 MG/0.4 ML DISP.SYRIN SQ SCH (22:19)
[2022-01-23] VITALS: BP 111/72
[2022-01-23] MEDS: VANCOMYCIN 1 GM in IV D5W 250ml IV SCH ×3 (01:35→16:45)
[2022-01-23 04:00] VITALS: BP 110/83
[2022-01-23] MEDS: PIPERACILLIN /TAZOBACTAM 3.375 G in IV D5W 100 ML IV SCH ×3 (05:13→21:44)
[2022-01-23] MEDS: BLOOD SUGAR DIAGNOSTIC 1 EACH STRIP VI SCH ×4 (06:44→22:19)
[2022-01-23] MEDS: INSULIN REGULAR, HUMAN 100 UNIT/ML 3 ML VIAL SQ PRN ×3 (06:47→16:59)
--- NOTE | 2022-01-23 07:15 | NUR ---
ELECTRONICS TESTER CLOSING NOTES PATIENT IN BED AWAKE, A/O X1-2, ABLE TO VERBALIZE NEEDS, GARBLED SPEECH. GENERALIZED TREMORS WHEN MOVING. ON ASPIRATION PRECAUTION. NO SOB OR NOTED. ON O2 AT 3LPM VIA NASAL CANULA. NOT IN ACUTE DISTRESS. AFEBRILE. ON TELE MONITOR READING SINUS BRADYCARDIA AT 38-40 BPM. HAS LEFT UPPER ARM MIDLINE WITH IVPB ZOSYN RUNNING AT 25 ML/HR. INTACT, PATENT AND FLUSHING. URINE OUTPUT OF 750 ML. ALL DUE MEDS GIVEN AND NEEDS ATTENDED. SAFETY PRECAUTIONS MAINTAINED. WILL ENDORSE TO NEXT SHIFT FOR JESSICA.
[2022-01-23 07:18] LABS: CALCIUM, SERUM 8.9 mg/dL (8.5-10.1); CREATININE 0.6 mg/dL (0.6-1.3); POTASSIUM 3.8 mmol/L (3.5-5.1)
--- NOTE | 2022-01-23 07:30 | NUR ---
MORNING BABYSITTER AM NOTES RECEIVED PATIENT IN BED A/O X2 ABLE TO MAKE NEEDS KNOWN. WITH OXYGEN INHALATION AT 2LPM TOLERATING WELL. NO SOB NO DISTRESS NOTED AT THIS TIME. SB ON MONITOR, DENIES PAIN. WITH SHEELA MIDLINE PATENT FLUSHES WELL. ALL SAFETY MEASURES IN PLACE. HOB ELEVATED. CALL LIGHT WITHIN REACH.
[2022-01-23 08:00] VITALS: BP 113/66
[2022-01-23] MEDS: ACETYLCYSTEINE 10% SOLN 400 MG/4 ML VIAL NEB SCH ×2 (08:04→16:20)
[2022-01-23] MEDS: VALPROIC ACID 250 MG/5 ML UDC PO SCH ×3 (09:23→16:44)
[2022-01-23] MEDS: methylPREDNISolone SOD SUCC 40 MG/ML VIAL IV SCH (09:23)
[2022-01-23] MEDS: PANTOPRAZOLE 40 MG TABLET.DR PO SCH (09:24)
[2022-01-23] MEDS: CARVEDILOL 12.5 MG TABLET PO SCH ×2 (09:24→21:00)
[2022-01-23] MEDS: AMLODIPINE BESYLATE 5 MG TABLET PO SCH (09:24)
[2022-01-23] MEDS: ATORVASTATIN 10 MG TABLET PO SCH (09:24)
[2022-01-23] MEDS: ASPIRIN 81 MG TAB.CHEW NG SCH (09:24)
[2022-01-23] MEDS: GABAPENTIN 300 MG CAPSULE PO SCH ×3 (09:24→16:44)
[2022-01-23] MEDS: INSULIN GLARGINE, 100 UNIT/ML CARTRIDGE SQ SCH ×2 (09:28→23:46)
--- NOTE | 2022-01-23 09:30 | NUR ---
RN OTES DUE MEDS GIVEN
[2022-01-23] MEDS: SCOPOLAMINE PATCH 1 MG/72HR TD SCH (09:32)
[2022-01-23 12:00] VITALS: BP 105/61
[2022-01-23 16:00] VITALS: BP 109/65
--- NOTE | 2022-01-23 18:32 | NUR ---
ROAD ROLLER OPERATOR CLOSING NOTES PATIENT IN BED A/O X2 ABLE TO MAKE NEEDS KNOWN. WITH OXYGEN INHALATION AT 2LPM TOLERATING WELL. NO SOB NO DISTRESS NOTED AT THIS TIME. SB ON MONITOR, DENIES PAIN. WITH SHEELA MIDLINE PATENT FLUSHES WELL. ALL SAFETY MEASURES IN PLACE. HOB ELEVATED. ALL NEEDS MET. PM CARE DONE EARLIER. CALL LIGHT WITHIN REACH. WILL ENDORSE TO NEXT SHIFT FOR JESSICA.
--- NOTE | 2022-01-23 19:40 | NUR ---
SPECIAL EFFECTS MAKEUP ARTIST OPENING NOTE RECEIVED PATIENT IN BED; AWAKE, ALERT AND ORIENTED X 2. ON O2 INHALATION @ 3LPM VIA NASAL CANNULA; TOLERATING WELL. BREATHING EVEN AND NONLABORED. NOT IN ANY FORM OF RESPIRATORY DISTRESS. DENIES ANY PAIN OR DISCOMFORT AT THIS TIME. ON TELE MONITORING WITH READING OF SINUS BRADYCARDIA HR 40-45 BPM. WITH LEFT UPPER ARM MIDLINE; PATENT, INTACT AND SALINE LOCKED. NO S/S OF INFILTRATION NOTED. WITH SHABAZZ CATHETER IN PLACE DRAINING TO CLEAR BETH URINE TO UROBAG BY GRAVITY. SAFETY PRECAUTIONS IMPLEMENTED: HEAD OF BED ELEVATED, CALL LIGHT AND TABLE WITHIN REACH, SIDE RAILS UP X 2, BED IN LOWEST LOCKED POSITION. WILL CONTINUE PLAN OF CARE.
[2022-01-23 20:00] VITALS: BP 112/62
[2022-01-23] MEDS: *INSULIN REGULAR(HUMULIN R)HUM 100 UNIT/ML VIAL SQ PRN (23:48)
[2022-01-23] MEDS: ENOXAPARIN SODIUM 40 MG/0.4 ML DISP.SYRIN SQ SCH (23:49)
[2022-01-24] VITALS: BP 115/64
[2022-01-24] MEDS: ACETYLCYSTEINE 10% SOLN 400 MG/4 ML VIAL NEB SCH ×4 (00:18→23:30)
[2022-01-24] MEDS: ACETAMINOPHEN 325 MG TABLET PO PRN (00:25)
[2022-01-24] MEDS: VANCOMYCIN 1 GM in IV D5W 250ml IV SCH ×3 (01:21→17:43)
[2022-01-24 04:00] VITALS: BP 120/70
[2022-01-24] MEDS: PIPERACILLIN /TAZOBACTAM 3.375 G in IV D5W 100 ML IV SCH (05:22)
--- NOTE | 2022-01-24 07:05 | NUR ---
SENIOR MANUFACTURING TECHNICIAN CLOSING NOTE PATIENT IN BED; AWAKE, A/O X 2. ON O2 INHALATION @ 3LPM VIA NASAL CANNULA; WELL TOLERATED. BREATHING EVENLY AND UNLABORED. IN NO ACUTE DISTRESS. NO C/O ANY PAIN OR DISCOMFORT AT THIS TIME. ON TELE MONITORING WITH READING OF SINUS BRADYCARDIA HR 40 BPM. WITH LEFT UPPER ARM MIDLINE; PATENT, INTACT AND SALINE LOCKED. WITH SHABAZZ CATHETER IN PLACE DRAINING TO CLEAR BETH URINE TO UROBAG BY GRAVITY. SAFETY PRECAUTIONS MAINTAINED: HEAD OF BED ELEVATED, CALL LIGHT AND TABLE WITHIN REACH, SIDE RAILS UP X 2, BED IN LOWEST LOCKED POSITION. ENDORSED TO MAEGAN GREENE FOR JESSICA.
--- NOTE | 2022-01-24 07:10 | NUR ---
RN OPENING NOTES RECEIVED PATIENT IN BED A/O X2 ABLE TO MAKE NEEDS KNOWN WITH LITTLE SLURRED SPEECH. WITH OXYGEN INHALATION AT 2LPM TOLERATING WELL. NO SOB NO DISTRESS NOTED AT THIS TIME. WITH SHEELA MIDLINE PATENT FLUSHES WELL. ALL SAFETY MEASURES IN PLACE. HOB ELEVATED. CALL LIGHT WITHIN REACH.PT NOTED SCREAMING ASKED WHAT HE NEEDS HE SAID HE IS HUNGRY REMINDED HIM HE WILL HAVE BREAKFAST SOON. WILL MONITOR
[2022-01-24 07:31] LABS: CALCIUM, SERUM 8.7 mg/dL (8.5-10.1); CREATININE 0.7 mg/dL (0.6-1.3); POTASSIUM 3.6 mmol/L (3.5-5.1)
[2022-01-24 08:00] VITALS: BP 117/68
[2022-01-24] MEDS: BLOOD SUGAR DIAGNOSTIC 1 EACH STRIP VI SCH ×4 (08:00→22:05)
[2022-01-24] MEDS: INSULIN REGULAR, HUMAN 100 UNIT/ML 3 ML VIAL SQ PRN ×3 (08:05→17:46)
[2022-01-24] MEDS: methylPREDNISolone SOD SUCC 40 MG/ML VIAL IV SCH (08:57)
[2022-01-24] MEDS: VALPROIC ACID 250 MG/5 ML UDC PO SCH ×3 (08:58→17:43)
[2022-01-24] MEDS: PANTOPRAZOLE 40 MG TABLET.DR PO SCH (08:58)
[2022-01-24] MEDS: AMLODIPINE BESYLATE 5 MG TABLET PO SCH (08:59)
[2022-01-24] MEDS: ATORVASTATIN 10 MG TABLET PO SCH (08:59)
[2022-01-24] MEDS: ASPIRIN 81 MG TAB.CHEW NG SCH (08:59)
[2022-01-24] MEDS: GABAPENTIN 300 MG CAPSULE PO SCH ×3 (08:59→17:43)
[2022-01-24] MEDS: CARVEDILOL 12.5 MG TABLET PO SCH (09:00)
[2022-01-24] MEDS: INSULIN GLARGINE, 100 UNIT/ML CARTRIDGE SQ SCH ×2 (09:01→22:02)
--- NOTE | 2022-01-24 10:30 | NUR ---
RN NOTES: SEEN BY DR ROSINA MATTHEWS MADE AWARE OF HR 40 AND CARVEDILOL WAS HELD WITH ORDER OF EKG AND HE WILL TALK TO THE PROPERTY AND CASUALTY INSURANCE AGENT
[2022-01-24] MEDS ORDERED: LEVO500T90 PO (11:01)
[2022-01-24] MEDS ORDERED: METR500T PO (11:01)
[2022-01-24] MEDS ORDERED: Insulin Glargine,Hum SQ (11:01)
[2022-01-24] MEDS ORDERED: METH4TAB17 PO (11:01)
[2022-01-24 12:00] VITALS: BP 116/64
[2022-01-24 16:00] VITALS: BP 121/72
[2022-01-24] MEDS: LURASIDONE HCL 60 MG PO SCH (19:11)
--- NOTE | 2022-01-24 19:30 | NUR ---
RN OPENING NOTES RECEIVED PATIENT IN BED A/O X2 ABLE TO MAKE NEEDS KNOWN WITH GARBLED SPEECH. ON 2L VIA NC. TOLERATING WELL, NO S/S OF ACUTE DISTRESS. TELE MONITOR READING SB IN THE LOW 40'S WITH SHEELA MIDLINE PATENT FLUSHES WELL. ALL SAFETY MEASURES IN PLACE, BED ALARM ON, BED IN LOW LOCK POSITION, CALL LIGHT AND TABLE WITHIN EASY REACH, SIDE RAILS UP X2. WILL CONTINUE TO MONITOR THROUGHOUT SHIFT.
--- NOTE | 2022-01-24 19:38 | NUR ---
DISTRICT COURT ADMINISTRATOR OPENING NOTES RECEIVED PATIENT IN BED A/O X2 ABLE TO MAKE NEEDS KNOWN. WITH OXYGEN VIA NASAL CANNULA AT 2LPM TOLERATING WELL. NO SOB NO DISTRESS NOTED AT THIS TIME. SB ON MONITOR, DENIES PAIN. WITH SHEELA MIDLINE PATENT FLUSHES WELL. ALL SAFETY MEASURES IN PLACE. HOB ELEVATED. CALL LIGHT WITHIN REACH Addendum: 01/24/22 at 1940 by MAEGAN CHAVEZ RN CLOSING NOTES
[2022-01-24 20:00] VITALS: BP 128/69
[2022-01-24] MEDS: CARVEDILOL 6.25 MG TABLET PO SCH (21:00)
[2022-01-24] MEDS: ENOXAPARIN SODIUM 40 MG/0.4 ML DISP.SYRIN SQ SCH (22:02)
[2022-01-24] MEDS: *INSULIN REGULAR(HUMULIN R)HUM 100 UNIT/ML VIAL SQ PRN (22:05)
[2022-01-25] VITALS: BP 109/65
[2022-01-25] MEDS: VANCOMYCIN 1 GM in IV D5W 250ml IV SCH ×3 (01:56→17:33)
[2022-01-25 04:00] VITALS: BP 111/66
--- NOTE | 2022-01-25 06:50 | NUR ---
RN CLOSING NOTES RECEIVED PATIENT IN BED A/O X2 ABLE TO MAKE NEEDS KNOWN WITH GARBLED SPEECH. ON 2L VIA NC. TOLERATING WELL, NO S/S OF ACUTE DISTRESS. TELE MONITOR READING SB HR 43. WITH SHEELA MIDLINE PATENT FLUSHES WELL. SHABAZZ CATHETER DRAINED 2000ML. ALL SAFETY MEASURES IN PLACE, BED ALARM ON, BED IN LOW LOCK POSITION, CALL LIGHT AND TABLE WITHIN EASY REACH, SIDE RAILS UP X2. WILL ENDORSE TO MORNING SHIFT FOR JESSICA.
--- NOTE | 2022-01-25 07:27 | NUR ---
RN OPENING NOTES RECEIVED PATIENT IN BED A/O X2 ABLE TO MAKE NEEDS KNOWN WITH LITTLE SLURRED SPEECH. WITH OXYGEN AT 2LPM TOLERATING WELL. NO SOB NO DISTRESS NOTED AT THIS TIME. WITH SHEELA MIDLINE PATENT FLUSHES WELL. ALL SAFETY MEASURES IN PLACE. HOB ELEVATED. CALL LIGHT WITHIN REACH.
[2022-01-25 07:33] LABS: CALCIUM, SERUM 8.7 mg/dL (8.5-10.1); CREATININE 0.7 mg/dL (0.6-1.3); POTASSIUM 3.5 mmol/L (3.5-5.1)
[2022-01-25 08:00] VITALS: BP 111/66
[2022-01-25] MEDS: ACETYLCYSTEINE 10% SOLN 400 MG/4 ML VIAL NEB SCH (08:25)
[2022-01-25] MEDS: BLOOD SUGAR DIAGNOSTIC 1 EACH STRIP VI SCH ×4 (08:30→22:11)
[2022-01-25] MEDS: methylPREDNISolone SOD SUCC 40 MG/ML VIAL IV SCH (08:31)
[2022-01-25] MEDS: PANTOPRAZOLE 40 MG TABLET.DR PO SCH (08:31)
[2022-01-25] MEDS: VALPROIC ACID 250 MG/5 ML UDC PO SCH ×3 (08:31→17:33)
[2022-01-25] MEDS: AMLODIPINE BESYLATE 5 MG TABLET PO SCH (08:31)
[2022-01-25] MEDS: GABAPENTIN 300 MG CAPSULE PO SCH ×3 (08:31→17:33)
[2022-01-25] MEDS: ATORVASTATIN 10 MG TABLET PO SCH (08:31)
[2022-01-25] MEDS: ASPIRIN 81 MG TAB.CHEW NG SCH (08:31)
[2022-01-25] MEDS: CARVEDILOL 6.25 MG TABLET PO SCH (08:32)
[2022-01-25] MEDS: INSULIN GLARGINE, 100 UNIT/ML CARTRIDGE SQ SCH ×2 (08:37→22:15)
[2022-01-25] MEDS: ACETAMINOPHEN 325 MG TABLET PO PRN (11:37)
[2022-01-25] MEDS: *INSULIN REGULAR(HUMULIN R)HUM 100 UNIT/ML VIAL SQ PRN ×2 (11:48→22:16)
[2022-01-25 12:00] VITALS: BP 120/67
[2022-01-25 16:00] VITALS: BP 115/64
[2022-01-25] MEDS: ACETYLCYSTEINE 20% SOLN 800 MG/4 ML VIAL NEB SCH ×2 (16:09→23:22)
[2022-01-25] MEDS: LURASIDONE HCL 60 MG PO SCH (18:00)
[2022-01-25] MEDS: INSULIN REGULAR, HUMAN 100 UNIT/ML 3 ML VIAL SQ PRN (18:15)
--- NOTE | 2022-01-25 18:47 | NUR ---
RN CLOSING NOTES RECEIVED PATIENT IN BED A/O X2 ABLE TO MAKE NEEDS KNOWN WITH GARBLED SPEECH. ON 3L VIA NC. TOLERATING WELL, NO S/S OF ACUTE DISTRESS. TELE MONITOR READING SB HR 43. WITH SHEELA MIDLINE PATENT FLUSHES WELL.SHABAZZ CATH IN PLACE DRAINING TO GRAVITY. ALL SAFETY MEASURES IN PLACE, BED ALARM ON, BED IN LOW LOCK POSITION, CALL LIGHT AND TABLE WITHIN EASY REACH, SIDE RAILS UP X2. WILL ENDORSE TO CORPORATE LOGISTICS MANAGER FOR JESSICA.
--- NOTE | 2022-01-25 19:30 | NUR ---
RN OPENING NOTES RECEIVED PATIENT IN BED, A/O X2, ABLE TO MAKE NEEDS KNOWN. CURRENTLY ON O2 THERAPY AT 2LPM VIA NC, TOLERATING WELL. NO SOB, NO DISTRESS NOTED AT THIS TIME. TELE MONITOR READS SB WITH HR IN THE 50s. IV ACCESS IN SHEELA MIDLINE INTACT AND PATENT, FLUSHES WELL. NS TKO INFUSING. FC NOTED DRAINING URINE BY GRAVITY. ALL SAFETY MEASURES IN PLACE: BED LOCKED IN LOW POSITION, HOB ELEVATED. CALL LIGHT WITHIN REACH. WILL CONTINUE TO MONITOR.
[2022-01-25 20:00] VITALS: BP 132/69
[2022-01-25] MEDS: ENOXAPARIN SODIUM 40 MG/0.4 ML DISP.SYRIN SQ SCH (22:06)
[2022-01-26] VITALS: BP 127/70
[2022-01-26] MEDS: VANCOMYCIN 1 GM in IV D5W 250ml IV SCH ×2 (00:06→09:50)
[2022-01-26] MEDS: IV NS 0.9% 250 ML IV PRN (00:10)
[2022-01-26 04:00] VITALS: BP 119/66
--- NOTE | 2022-01-26 05:44 | NUR ---
RN NOTE NO SIGNIFICANT CHANGES T/O THE NIGHT. PM CARE DONE. TURNED AND REPOSITIONED. DUE MEDS GIVEN. WILL ENDORSE TO AM SHIFT NURSE FOR JESSICA.
[2022-01-26 07:06] LABS: BASOPHILS # (AUTO) 0.1 K/uL (0.0-0.2); BASOPHILS % (AUTO) 0.4 % (0.0-2.0); EOSINOPHILS % (AUTO) 1.1 % (0.0-6.0); HEMATOCRIT 39 % (39-51); HEMOGLOBIN 13.4 g/dL (13.5-17.5); LYMPHOCYTES # (AUTO) 2.6 K/uL (0.8-4.8); LYMPHOCYTES % (AUTO) 22.6 % (20.0-44.0); MEAN CORPUSCULAR HGB CONC 34 g/dl (31.0-36.0); MEAN CORPUSCULAR VOLUME 89 fL (80-96); MONOCYTES # (AUTO) 0.7 K/uL (0.1-1.30); MONOCYTES % (AUTO) 6.4 % (2.0-12.0); NEUTROPHILS % (AUTO) 69.5 % (43.0-81.0); PLATELET COUNT (AUTO) 126 K/uL (150-450); RED BLOOD CELL COUNT(AUTO) 4.41 MIL/uL (4.5-6.0); WHITE BLOOD COUNT (AUTO) 11.5 K/uL (4.3-11.0)
--- NOTE | 2022-01-26 07:08 | NUR ---
RN OPENING NOTES RECEIVED PATIENT IN BED, A/O X2, ABLE TO MAKE NEEDS KNOWN. CURRENTLY ON O2 THERAPY AT 2LPM VIA NC, TOLERATING WELL. NO SOB, NO DISTRESS NOTED AT THIS TIME. TELE MONITOR. IV ACCESS IN SHEELA MIDLINE INTACT AND PATENT, FLUSHES WELL. NS TKO INFUSING. FC NOTED DRAINING URINE BY GRAVITY.ALL SAFETY MEASURES IN PLACE: BED LOCKED IN LOW POSITION, HOB ELEVATED. CALL LIGHT WITHIN REACH.
[2022-01-26 07:13] LABS: CALCIUM, SERUM 9.1 mg/dL (8.5-10.1); CREATININE 0.6 mg/dL (0.6-1.3); MAGNESIUM 1.7 mg/dL (1.8-2.4); PHOSPHORUS 2.8 mg/dL (2.5-4.9); POTASSIUM 3.8 mmol/L (3.5-5.1)
[2022-01-26] MEDS: BLOOD SUGAR DIAGNOSTIC 1 EACH STRIP VI SCH ×4 (07:30→21:15)
[2022-01-26 08:00] VITALS: BP 115/75
[2022-01-26] MEDS: GABAPENTIN 300 MG CAPSULE PO SCH ×3 (08:59→17:45)
[2022-01-26] MEDS: AMLODIPINE BESYLATE 5 MG TABLET PO SCH (09:00)
[2022-01-26] MEDS: VALPROIC ACID 250 MG/5 ML UDC PO SCH ×3 (09:00→17:45)
[2022-01-26] MEDS: methylPREDNISolone SOD SUCC 40 MG/ML VIAL IV SCH (09:00)
[2022-01-26] MEDS: PANTOPRAZOLE 40 MG TABLET.DR PO SCH (09:00)
[2022-01-26] MEDS: ATORVASTATIN 10 MG TABLET PO SCH (09:00)
[2022-01-26] MEDS: ASPIRIN 81 MG TAB.CHEW NG SCH (09:00)
[2022-01-26] MEDS: ACETYLCYSTEINE 20% SOLN 800 MG/4 ML VIAL NEB SCH ×3 (09:01→23:25)
[2022-01-26] MEDS: INSULIN REGULAR, HUMAN 100 UNIT/ML 3 ML VIAL SQ PRN ×3 (09:02→17:53)
[2022-01-26] MEDS: INSULIN GLARGINE, 100 UNIT/ML CARTRIDGE SQ SCH ×2 (09:14→21:19)
[2022-01-26] MEDS ORDERED: MAGNESIUM OXIDE 400 MG TABLET PO ONE (10:00)
[2022-01-26 12:00] VITALS: BP 117/74
[2022-01-26] MEDS: SCOPOLAMINE PATCH 1 MG/72HR TD SCH (12:19)
[2022-01-26] MEDS: ACETAMINOPHEN 325 MG TABLET PO PRN ×2 (12:19→21:11)
[2022-01-26] MEDS ORDERED: HYDROCODONE/APAP 5/325MG TABLET PO ONE (15:00)
--- NOTE | 2022-01-26 15:39 | NUR ---
RN NOTE RECEIVED VERBAL ORDER FOR DISCHARGE FROM [facility]. ORDERS PLACED
[2022-01-26 16:00] VITALS: BP 118/72
[2022-01-26] MEDS: LURASIDONE HCL 60 MG PO SCH (17:48)
[2022-01-26] MEDS: VANCOMYCIN HCL 0.75 GM in IV D5W 250 ML IV SCH (17:56)
--- NOTE | 2022-01-26 18:56 | NUR ---
RN CLOSING NOTES RECEIVED PATIENT IN BED A/O X2 ABLE TO MAKE NEEDS KNOWN WITH GARBLED SPEECH. ON 3L VIA NC. TOLERATING WELL, NO S/S OF ACUTE DISTRESS. TELE MONITOR READING SB HR 43. WITH SHEELA MIDLINE PATENT FLUSHES WELL.SHABAZZ CATH IN PLACE DRAINING TO GRAVITY. ALL SAFETY MEASURES IN PLACE, BED ALARM ON, BED IN LOW LOCK POSITION, CALL LIGHT AND TABLE WITHIN EASY REACH, SIDE RAILS UP X2. WILL ENDORSE TO DIRECTOR OF CARDIOPULMONARY SERVICES FOR JESSICA. PATIENT HAS A PENDING D/C ORDER NIGHT NURSE WILL RECEIVE CALL FROM [employer] REGARDING PLACEMENT. ALL DC FORMS HAVE BEEN DONE AND PLACED IN CHART
--- NOTE | 2022-01-26 19:10 | NUR ---
MAINFRAME ARCHITECT OPEN NOTE: ALERT TIMES TWO. FORGETFUL. REORIENTED NEEDED. ON O2 3 LMP NC. ON TELE MONITOR WITH A READING OF SINUS MARIELLA 50. IN ON LEFT UPPER ARM. IV SITE WITH NO S/S OF COMPLICATIONS. SHABAZZ WITH YELLOW CLEAR URINE. REPOSITIONED WITH PILLOWS. HOB ELEVATED SEMI-FOWLERS POSITION. BILATERAL HALF SIDE RAILS UP X2. BED IN LOW POSITION, LOCKED, CALL LIGHT IN REACH.
[2022-01-26 20:00] VITALS: BP 116/64
[2022-01-26] MEDS: ENOXAPARIN SODIUM 40 MG/0.4 ML DISP.SYRIN SQ SCH (21:10)
[2022-01-26] MEDS: *INSULIN REGULAR(HUMULIN R)HUM 100 UNIT/ML VIAL SQ PRN (21:21)
[2022-01-26] MEDS: IPRATROPIUM NEB FS 0.5 MG/2.5 ML AMPUL.NEB NEB PRN (23:25)
[2022-01-27] VITALS: BP 116/64
[2022-01-27] MEDS: VANCOMYCIN HCL 0.75 GM in IV D5W 250 ML IV SCH ×3 (01:02→18:24)
[2022-01-27] MEDS: IV NS 0.9% 250 ML IV PRN (01:03)
[2022-01-27 04:00] VITALS: BP 116/70
--- NOTE | 2022-01-27 06:50 | NUR ---
REPORT SPECIALIST CLOSING NOTE: ALERT TIMES TWO. FORGETFUL. REORIENTED NEEDED. ON O2 3 LMP NC. ON TELE MONITOR WITH A READING OF SINUS MARIELLA 46. NO A/R TO ABX. NS TKO 10ML/HR IN ON LEFT UPPER ARM. IV SITE WITH NO S/S OF COMPLICATIONS. BLOOD GLUCOSE LEVELS COVERED ORDERED WITH NO S/S OF HYPO OR HYPERGLYCEMIA. SNACKS GIVEN PER REQUEST. SHABAZZ WITH YELLOW CLEAR URINE. REPOSITIONED WITH PILLOWS. KEPT CLEAN AND COMFORTABLE. HOB ELEVATED SEMI-FOWLERS POSITION. BILATERAL HALF SIDE RAILS UP X2. BED IN LOW POSITION, LOCKED, CALL LIGHT IN REACH.
--- NOTE | 2022-01-27 07:20 | NUR ---
RN OPENING NOTES RECEIVED PATIENT IN BED, A/O X2, ABLE TO MAKE NEEDS KNOWN. CURRENTLY ON O2 AT 2LPM VIA NC, TOLERATING WELL. NO SOB, NO DISTRESS NOTED AT THIS TIME. SINUS BRADYCARDIA ON TELE MONITOR . IV ACCESS IN SHEELA MIDLINE INTACT AND PATENT, FLUSHES WELL. FC YELLOW/BETH COLOR DRAINING BY GRAVITY.ALL SAFETY MEASURES IN PLACE: BED LOCKED IN LOW POSITION, HOB ELEVATED. CALL LIGHT WITHIN REACH. SIDE RAILS UP X2. BED ALARM ON
[2022-01-27] MEDS: BLOOD SUGAR DIAGNOSTIC 1 EACH STRIP VI SCH ×3 (07:42→18:24)
[2022-01-27] MEDS: ACETYLCYSTEINE 20% SOLN 800 MG/4 ML VIAL NEB SCH ×2 (07:52→17:53)
[2022-01-27 08:00] VITALS: BP 127/73
[2022-01-27 08:33] LABS: CALCIUM, SERUM 8.6 mg/dL (8.5-10.1); CREATININE 0.6 mg/dL (0.6-1.3); POTASSIUM 3.8 mmol/L (3.5-5.1)
[2022-01-27] MEDS: AMLODIPINE BESYLATE 5 MG TABLET PO SCH (09:00)
[2022-01-27] MEDS: VALPROIC ACID 250 MG/5 ML UDC PO SCH ×3 (10:27→18:15)
[2022-01-27] MEDS: ASPIRIN 81 MG TAB.CHEW NG SCH (10:27)
[2022-01-27] MEDS: methylPREDNISolone SOD SUCC 40 MG/ML VIAL IV SCH (10:27)
[2022-01-27] MEDS: PANTOPRAZOLE 40 MG TABLET.DR PO SCH (10:27)
[2022-01-27] MEDS: GABAPENTIN 300 MG CAPSULE PO SCH ×3 (10:27→18:15)
[2022-01-27] MEDS: ATORVASTATIN 10 MG TABLET PO SCH (10:53)
[2022-01-27] MEDS: INSULIN GLARGINE, 100 UNIT/ML CARTRIDGE SQ SCH ×2 (10:55→22:23)
[2022-01-27] MEDS: INSULIN REGULAR, HUMAN 100 UNIT/ML 3 ML VIAL SQ PRN ×3 (10:58→18:51)
[2022-01-27] MEDS: ACETAMINOPHEN 325 MG TABLET PO PRN (11:50)
[2022-01-27 12:00] VITALS: BP 127/72
[2022-01-27 16:00] VITALS: BP 119/70
--- NOTE | 2022-01-27 17:00 | NUR ---
RN NOTE PENDING DISCHARGE GAVE REPORT TO JOHN GREENE AT [facility]. ENDORSED THAT PT SENIOR INDUSTRIAL ENGINEER TIME 2100. RN ACKNOWLEDGED
[2022-01-27] MEDS: LURASIDONE HCL 60 MG PO SCH (18:15)
[2022-01-27 20:00] VITALS: BP 122/82
--- NOTE | 2022-01-27 20:37 | NUR ---
RN CLOSING NOTES PATIENT IN BED, A/O X2, ABLE TO MAKE NEEDS KNOWN. PT HAS PERIDOS OF CONFUSION. CURRENTLY ON O2 AT 2LPM VIA NC, TOLERATING WELL. NO SOB,DISTRESS, PAIN NOTED AT THIS TIME. SINUS BRADYCARDIA ON TELE MONITOR . IV ACCESS IN SHEELA MIDLINE INTACT AND PATENT, FLUSHES WELL. FC YELLOW/BETH COLOR DRAINING BY GRAVITY.PT IS PENDING DISCHARGE. AMBULANCE PICKUP TIME 2100. ENDORSED TO SPECTACLE TRUER RN. ALL SAFETY MEASURES IN PLACE: BED LOCKED IN LOW POSITION, HOB ELEVATED. CALL LIGHT WITHIN REACH. SIDE RAILS UP X2. BED ALARM ON
--- NOTE | 2022-01-27 22:02 | NUR ---
RN NOTES Called [facility] to inform them that transport is here and patient will be on his way, spoke to Luna. All patient meds picked up by RAMONA Portillo from pharmacy earlier; endorsed to transport to give to the facility. Patient aware
[2022-01-27] MEDS: *INSULIN REGULAR(HUMULIN R)HUM 100 UNIT/ML VIAL SQ PRN (22:22)
== END 2022-01-27 23:02 | DRG 871 ==
LOC: ER 18:19 → TRANSITION 01-18 01:07 → ICU 01-18 08:32 → TELE1 01-21 11:54
PROVIDERS: ADMIT Nurse Practitioner Acute Care; ATTEND Registered Nurse
PROC: 0BH18EZ Insertion of Endotracheal Airway into Trachea, Via Natural or Artificial Opening Endoscopic (ICD-10-PCS; principal; 2022-01-17)
PROC: 5A1945Z Respiratory Ventilation, 24-96 Consecutive Hours (ICD-10-PCS; 2022-01-17)
PROC: 05HC33Z Insertion of Infusion Device into Left Basilic Vein, Percutaneous Approach (ICD-10-PCS; 2022-01-18)
DX: A41.9 Sepsis, unspecified organism (principal); G92.8 Other toxic encephalopathy; J69.0 Pneumonitis due to inhalation of food and vomit; J96.01 Acute respiratory failure with hypoxia; I21.A1 Myocardial infarction type 2; N17.0 Acute kidney failure with tubular necrosis; J44.1 Chronic obstructive pulmonary disease with (acute) exacerbation; J44.0 Chronic obstructive pulmonary disease with (acute) lower respiratory infection; J98.11 Atelectasis; Z20.822 Contact with and (suspected) exposure to COVID-19; E78.5 Hyperlipidemia, unspecified; G47.00 Insomnia, unspecified; R42 Dizziness and giddiness; Z79.82 Long term (current) use of aspirin; Z79.4 Long term (current) use of insulin; Z79.84 Long term (current) use of oral hypoglycemic drugs; I11.9 Hypertensive heart disease without heart failure; Z91.199 Patient's noncompliance with other medical treatment and regimen due to unspecified reason; Z79.899 Other long term (current) drug therapy; I25.2 Old myocardial infarction; F17.200 Nicotine dependence, unspecified, uncomplicated; G89.4 Chronic pain syndrome; E11.65 Type 2 diabetes mellitus with hyperglycemia; Z98.890 Other specified postprocedural states; G40.901 Epilepsy, unspecified, not intractable, with status epilepticus; F11.11 Opioid abuse, in remission; T50.995A Adverse effect of other drugs, medicaments and biological substances, initial encounter; Y92.9 Unspecified place or not applicable
CPT/HCPCS: 31720; 36410; 36415; 36600; 70450-TC; 70496-TC; 70498-TC; 71045-TC; 80048-TC; 80061-TC; 80076-TC; 80164-TC; 80202-TC; 82803-TC; 82962-TC; 83735-TC; 83880; 84100-TC; 84443-TC; 84484-TC; 85025-TC; 85730-TC; 87040-TC; 87081-TC; 92526; 92611-TC; 94002-TC; 94003-TC; 94799-TC; 97112-TC; 97116-TC; 97530-TC; C9113; C9803; G0378; J0330; J0692; J1650; J1815; J1940; J2185; J2270; J2405; J2543; J2920; J3370; J3475; J3490; J7030; J7042; J7050; J7060; Q9967